=== PATIENT | male | born 1950 | race Caucasian/White ===

== ENCOUNTER 2017-08-14 05:28 | Observation (INO) | payer MEDICARE ==
[2017-08-12 10:44] VITALS: BMI 21.5
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
[2017-08-14] MEDS ORDERED: Midazolam HCl 2 mg/2 ml Vial ONE (06:12)
[2017-08-14] MEDS ORDERED: Fentanyl 250 MCG/5 ML VIAL ONE (06:12)
[2017-08-14] MEDS ORDERED: Thrombin 5000 UNITS/5 ML VIAL ONE (06:22)
[2017-08-14] MEDS ORDERED: Bupivacaine PF 0.5% 30 ML VIAL ONE (06:22)
[2017-08-14] MEDS ORDERED: Bupivacaine/Epinephrine 0.25% 30 ML VIAL ONE (06:22)
[2017-08-14] MEDS ORDERED: Sodium Chloride 0.9% 10 ML ONE (06:22)
[2017-08-14] MEDS ORDERED: CEFAZOLIN/Water 2 GM/20 ML SYRINGE ONE (06:32)
[2017-08-14] MEDS ORDERED: Glycopyrrolate 0.2 MG/ML 5 ML SYRINGE ONE (07:05)
[2017-08-14] MEDS ORDERED: PHENYLEPHRINE-NS 100 MCG/ML 10 ML SYRINGE ONE (07:05)
[2017-08-14] MEDS ORDERED: Propofol 200 MG/20 ML VIAL ONE (07:05)
[2017-08-14] MEDS ORDERED: Lidocaine 1% PF 5 ML VIAL ONE (07:05)
[2017-08-14] MEDS ORDERED: Ondansetron HCl/PF 4 MG/2 ML Vial ONE (07:05)
[2017-08-14] MEDS ORDERED: HYDROmorphone 2 MG/ML VIAL SLOW IVP PRN (09:18)
[2017-08-14] MEDS ORDERED: Meperidine HCl/PF 25 MG/ML VIAL SLOW IVP PRN (09:18)
[2017-08-14] MEDS ORDERED: Promethazine HCl 25 MG/ML VIAL SLOW IVP PRN (09:18)
[2017-08-14] MEDS ORDERED: Morphine Sulfate 2 MG/ML SYRINGE SLOW IVP PRN (09:18)
[2017-08-14] MEDS ORDERED: Fentanyl 100 MCG/2 ML VIAL ONE ×4 (09:30→10:40)
[2017-08-14] MEDS ORDERED: Ketorolac Tromethamine 30 MG/ML VIAL ONE (10:14)
--- NOTE | 2017-08-14 10:14 | OP ---
DATE OF PROCEDURE: 08/14/2017 SURGEON: Jere Elkins M.D. BUSINESS AGENT: Gilbert Hennessy PA-C. PREOPERATIVE INDICATION: Prevent neurological deterioration. 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 OPERATIVE PROCEDURE: Anterior cervical diskectomy, intervertebral arthrodesis, placement of interve rtebral biomechanical device, local morselized autograft, morselized Allograft, and anterior cervica l plating C3-C4 and C4-C5 and operating microscope. PREOPERATIVE MEDICATION: Ancef 2 grams IV. DRAIN NUMBER: Zero. DRAIN TYPE: None. PROCEDURE IN DETAIL: The patient was brought to the operating room. General endotracheal anesthesi a was induced. The patient was positioned supine on the operating table with his head supported by gel-filled donut shaped headrest. A lateral fluoro radiograph was used to plan our incision. The r ight side of the neck was sterilely prepped and draped. We opened the incision in the skin folds of the right side of the neck with a 10 blade knife and controlled bleeding with bipolar cautery. We dissected sharply to the platysma and cut this muscle in line with our incision. We carried our dis section medial to the sternocleidomastoid, and lateral to the trachea and esophagus to the preverteb ral space. We placed a marker at C3-C4 and took a lateral fluoro radiograph to confirm the levels u yaneli which we were operating. We elevated the longus colli muscles off the anterior surface of C3, C 4, and C5 and placed a self-retaining retractor beneath them. Distraction pins were placed at C3 an d C5 and distracted across both of the intervening interspaces. We incised the interspaces with a 1 5 blade knife and removed disk contents using curettes and rongeurs. The operating microscope was b rought into the field. Under microscopic magnification using microsurgical techniques, we removed the remainder of the inte rvertebral disk. We accessed the ventral epidural space with a micro curette and then using Keromid n rongeurs, we removed the posterior longitudinal ligament and posterior osteophytes across the enti re disk space from one neural foramen all the way to the other with wide foraminotomies and this was done at C3-C4 and again at C4-C5. The dura was nicely decompressed. We prepared the endplates for grafting using angled curettes. We measured the height of the each interspace. The C3-C4 interspa ce measured 7 mm and C4-C5 measured 6 mm. The appropriately sized PEEK intervertebral graft was bro ught into the field. They were loaded with demineralized bone matrix and morselized autograft. The autograft was then prepared on the back table by using our bone that we harvested during osteophyte removal. This bone was cleaned of all soft tissue attachments, morselized and added to demineraliz ed bone matrix to form our fusion substrate. The PEEK grafts were advanced into their respective in terspaces under radiographic guidance to the appropriate depth. An anterior cervical plate was brou ght into the field. The 34 mm plate was affixed using variable angle screws at C3 and C4 and fixed angle screws used at C5. We engaged the locking mechanism over each of the 6 screws. AP and latera l fluoro radiographs confirmed adequate position of our instrumentation. We irrigated copiously wit h bacitracin irrigation. We closed the wound in anatomic layers and applied a sterile dressing. Th is was a clean case and no contamination.
[2017-08-14] MEDS ORDERED: Cyclobenzaprine 10 MG TAB ONE (10:35)
[2017-08-14] MEDS ORDERED: diphenhydrAMINE 50 MG/ML VIAL ONE (10:57)
[2017-08-14] MEDS ORDERED: Morphine 4 MG/ML VIAL ONE (12:42)
[2017-08-14] MEDS ORDERED: Acetaminophen/Codeine 30-300mg Tablet PO PRN ×2 (13:30)
[2017-08-14] MEDS ORDERED: Ondansetron HCl/PF 4 MG/2 ML Vial IVP PRN (13:30)
[2017-08-14] MEDS: Cyclobenzaprine 10 MG TAB PO PRN ×2 (14:46→22:34)
[2017-08-14] MEDS ORDERED: HYDROcodone/Acetaminophen 5/325 mg Tablet PO PRN (18:05)
[2017-08-14] MEDS: HYDROcodone/Acetaminophen 5/325 mg Tablet PO PRN ×2 (18:29→22:30)
[2017-08-14] MEDS: Mometasone/Formoterol 120 PUFF INHALER INH SCH (19:39)
[2017-08-14] MEDS ORDERED: FLU VACC TS2017-18 (>65YR) 0.5 ML SYRINGE IM ONE (21:00)
[2017-08-15] MEDS: HYDROcodone/Acetaminophen 5/325 mg Tablet PO PRN ×3 (03:24→12:04)
[2017-08-15] MEDS: Cyclobenzaprine 10 MG TAB PO PRN (06:13)
[2017-08-15] MEDS: Mometasone/Formoterol 120 PUFF INHALER INH SCH (07:20)
[2017-08-15] MEDS ORDERED: Multivitamin W/ Minerals 1 TAB PO SCH (09:00)
[2017-08-15 09:11] VITALS: BP 130/74; TEMP 97.5
--- NOTE | 2017-08-15 10:50 | PRG ---
DATE OF SERVICE: 08/15/2017 Mr. Friedman is postoperative day 1 from 2 level ACDF. He is doing well with as expected some postoper ative pain, but this appears to be well controlled. He is moving all extremities without focal defi cit. He is tolerating orals with mild dysphonia. His dressing is dry and his collar is well fittin g. We will plan on dismissal today. I went over the plan for today and we will arrange for postope rative pain medication.
--- NOTE | 2017-08-17 09:47 | DIS ---
DATE OF DISCHARGE: 08/15/2017 ADMISSION DIAGNOSES: Cervical spondylitic myelopathy and intervertebral disk disease with cord compr ession at C3-4 and C4-5 DISCHARGE DIAGNOSES: Cervical spondylitic myelopathy and intervertebral disk disease with cord compr ession at C3-4 and C4-5. DISCHARGE CONDITION: The patient is stable, doing well, he was tolerating regular diet. Pain is wel l controlled with pain medication. He is able to ambulate in the nazario with no problems. CONSULTATIONS: Physical therapy. PROCEDURES: Anterior cervical diskectomy, intervertebral arthrodesis, placement of intervertebral bi omechanical device, local morselized autograft and morselized allograft, and anterior cervical platin g of C3-4 and C4-5 with operating microscope. All images were taken intraoperatively. HISTORY OF PRESENT ILLNESS: Mr. Friedman is a 67-year-old male who we saw in the office who over the st several years has had some neck pain that has gotten worse. He has also had worsening balance and he has been hyperreflexic in the upper extremities. Because of the cord compression on the cervical spine he opted for neurosurgical intervention and had an anterior cervical diskectomy and fusion bet ween C3 and C5. HOSPITAL COURSE: Hospital course was unremarkable. DISCHARGE PHYSICAL EXAMINATION: HEENT: Normocephalic, atraumatic. Hearing intact. Moist mucous membranes. Trachea midline. EYES: Pupils are equal and reactive to light. Extraocular muscles are intact. Sclerae is white, no nicteric. CARDIOVASCULAR: The patient has regular rate and rhythm, normal S1, S2 heart sounds. He had no dist al cyanosis or clubbing. RESPIRATORY: The patient has bilateral symmetric chest rise. Appears to be no shortness of breath. NEUROLOGIC: Cranial nerves II-XII were grossly intact. Speech is fluent. He answers my questions a ppropriately. He is slightly off balance with gait and station. ACTIVITY: The patient can have regular activity upon discharge with restrictions of lifting no more than 15 pounds and wearing a C-collar when ambulating and sitting upright. DIET: The patient can have a regular diet upon discharge. HOME MEDICATIONS: 1. Flexeril 5 mg p.o. t.i.d. 2. Tramadol 50 mg p.o. t.i.d. p.r.n. 3. Tylenol #3 one tablet p.o. q.4 hours p.r.n. 4. Symbicort 160-4.5 2 puffs inhaler q.a.m. 5. Omeprazole 10 mg p.o. as desired. 6. Multivitamin 1 tablet p.o. daily.
== END 2017-08-15 13:16 | disposition home or self-care (01) ==
LOC: SDC 05:28 → SURG B 11:40
PROVIDERS: ADMIT Neurological Surgery; ATTEND Neurological Surgery
PROC: 0RG20A0 Fusion of 2 or more Cervical Vertebral Joints with Interbody Fusion Device, Anterior Approach, Anterior Column, Open Approach (ICD-10-PCS; principal; 2017-08-14)
DX: M50.021 Cervical disc disorder at C4-C5 level with myelopathy (principal); M47.12 Other spondylosis with myelopathy, cervical region; F17.210 Nicotine dependence, cigarettes, uncomplicated; M48.02 Spinal stenosis, cervical region; K21.9 Gastro-esophageal reflux disease without esophagitis; Z79.899 Other long term (current) drug therapy; Z96.7 Presence of other bone and tendon implants; Z90.2 Acquired absence of lung [part of]; Z98.890 Other specified postprocedural states
CPT/HCPCS: 20930; 20936; 22551; 22552; 22845; 22853 ×2; 76001; 90732; 94640; 94664; 96374; 96375; C1713 ×2; G0008; G0009; G0378 ×2; Q2036; 90471; 90682; A4216; J1170; J1200; J1885; J2001; J2250; J2270; J2405; J2704; J3010; J3490; S0020

== ENCOUNTER 2017-10-29 09:34 | Outpatient (CLI) | payer MEDICARE ==
--- NOTE | 2017-10-29 11:34 | RAD ---
THREE VIEWS CERVICAL SPINE: INDICATION: Radiculopathy. COMPARISON: Prior exam dated 04/20/17. FINDINGS: Since the comparison study, there has been interval performed of an ACDF spanning C3 through C5. The re are intervertebral disk cages at C3-4 and C4-5. Instrumentation projects in the expected position . Lung apices are clear. There are mild vascular calcifications involving the carotid bulbs. IMPRESSION: 1. Postoperative cervical spine. 2. Moderate spondylosis cervical spine. POS: [facility]
== END 2017-10-29 09:35 | disposition home or self-care (01) ==
LOC: TBSIIMAG 09:34
PROVIDERS: ATTEND Neurological Surgery
DX: M47.22 Other spondylosis with radiculopathy, cervical region (principal); Z98.1 Arthrodesis status
CPT/HCPCS: 72040

== ENCOUNTER 2017-12-02 11:22 | Outpatient (CLI) | payer MEDICARE, OTHER ==
[2017-12-02 12:44] LABS: Anion Gap 9 mmol/L (10-20); BUN (Urea Nitrogen) 10 mg/dL (8.4-25.7); Band 2 % (5-11); Calc. Creatinine Clearance 0 mL/min (70-130); Calcium 9.1 mg/dL (7.8-10.44); Carbon Dioxide 26 mmol/L (23-31); Chloride 104 mmol/L (98-107); Estimated GFR-MDRD Greater than 90; Glucose 113 mg/dL (80-115); Lymphocytes 40 % (21-51); MDiff Complete? YES; Mean Corpuscular HGB CONC 33.1 g/dL (32.0-36.0); Monocytes 8 % (0-10); Neutrophil 49 % (42-75); Platelet Count 186 thou/uL (130-400); Potassium 4.7 mmol/L (3.5-5.1); RBC Distribution Width 11.8 % (11.5-14.5); Reactive Lymphocytes 1 % (0-10); Red Blood Cell (RBC) Count 4.13 mill/uL (4.70-6.10); Sodium 134 mmol/L (136-145); White Blood Cell (WBC) Count 4.2 thou/uL (4.8-10.8)
--- NOTE | 2017-12-02 19:08 | EKG ---
Test Reason : Blood Pressure : / mmHG Vent. Rate : 058 BPM Atrial Rate : 058 BPM P-R Int : 138 ms QRS Dur : 080 ms QT Int : 436 ms P-R-T Axes : 071 065 040 degrees QTc Int : 428 ms Sinus bradycardia Otherwise normal ECG No previous ECGs available Confirmed by DR. Gurvinder BELCHER ([id number]) on 12/02/2017 7:08:17 PM Referred By: MANOJ Confirmed By:DR. Gurvinder BELCHER
== END 2017-12-02 11:23 | disposition home or self-care (01) ==
LOC: LABBT 11:22
PROVIDERS: ATTEND Specialist
DX: Z01.810 Encounter for preprocedural cardiovascular examination (principal); Z01.812 Encounter for preprocedural laboratory examination; K42.9 Umbilical hernia without obstruction or gangrene
CPT/HCPCS: 80048; 85025; 93005; 93010

== ENCOUNTER 2017-12-03 07:26 | Day surgery (SDC) | payer MEDICARE ==
[2017-12-02 11:36] VITALS: BMI 21.8
[2017-12-03] MEDS ORDERED: PROVENTIL INHALER 6.7 G (200 INHALATIONS) ONE (07:31)
[2017-12-03] MEDS ORDERED: Lidocaine 1% PF 5 ML VIAL ONE (07:31)
[2017-12-03] MEDS ORDERED: ePHEDrine/0.9% NaCl/PF SYRINGE 50 mg/10 ml ONE (07:31)
[2017-12-03] MEDS ORDERED: Dexamethasone 20 MG/5 ML VIAL ONE (07:31)
[2017-12-03] MEDS ORDERED: Glycopyrrolate 0.2 MG/ML 5 ML SYRINGE ONE (07:31)
[2017-12-03] MEDS ORDERED: PROPOFOL 200 MG/20 ML VIAL ONE (07:31)
[2017-12-03] MEDS ORDERED: Ondansetron HCl/PF 4 MG/2 ML Vial ONE ×3 (07:31→09:40)
[2017-12-03] MEDS ORDERED: CEFAZOLIN/Water 2 GM/20 ML SYRINGE ONE (08:16)
[2017-12-03] MEDS ORDERED: Ketorolac Tromethamine 30 MG/ML VIAL ONE (08:16)
[2017-12-03] MEDS ORDERED: Bupivacaine HCl 0.5%/Epinephrine 1:200,000/PF 30 ml Vial ONE (09:28)
[2017-12-03] MEDS ORDERED: Famotidine/PF 20 mg/2ml Vial ONE (09:40)
[2017-12-03] MEDS ORDERED: Fentanyl 100 MCG/2 ML VIAL ONE ×3 (09:45→11:18)
[2017-12-03] MEDS ORDERED: Promethazine HCl 25 MG/ML VIAL ONE (11:05)
--- NOTE | 2017-12-03 11:52 | OP ---
DATE OF PROCEDURE: 12/03/2017 PREOPERATIVE DIAGNOSIS: Umbilical hernia. POSTOPERATIVE DIAGNOSIS: Umbilical hernia. OPERATION PERFORMED: Umbilical hernia repair. SURGEON: Lupillo Miguel M.D. ANESTHESIA: General endotracheal. INDICATIONS: The patient is a 67-year-old white male. He presents with a symptomatic visible umbili thea hernia at the superior aspect of his umbilicus. He is taken to the operating room at this time f or repair. DESCRIPTION OF OPERATION: Informed consent was obtained. The patient was taken to the operating whe re general endotracheal anesthesia obtained with the patient in supine position. Abdomen was prepped with ChloraPrep and draped in sterile fashion. Local anesthetic was infiltrated using 0.5% Marcaine with epinephrine. Curvilinear infraumbilical incision was created. Dissection was carried through skin and subcutaneous tissue. The umbilicus was dissected off the underlying fascia and hernia sac a nd reflected superiorly. Hernia defect was easily visualized. This was debrided to viable tissue ci rcumferentially. It was cleared on the anterior and posterior aspects. A 4.3 cm Proceed ventral pat ch was passed via the preperitoneal space and the tails were pulled snug against the abdominal wall. The tails were secured to the anterior aspect of the abdominal wall using 2 interrupted sutures of 0 Prolene superiorly and inferiorly. The lateral aspects of the defect were closed with 2 additional 0 Prolene sutures incorporating bites of the anterior leaflet of the mesh patch. The umbilicus was s ecured to the fascia with 2 interrupted sutures of 3-0 Vicryl. The wound was closed in layers with 3 -0 and 4-0 Monocryl. Additional local anesthetic was infiltrated during closure. Dermabond was plac ed externally. A compression dressing was fashioned out of cotton balls and a Tegaderm in the usual fashion. Of note, during the course of dissecting the posterior aspect I palpated, could find no add itional hernia defect anywhere in the surrounding area.
[2017-12-03] MEDS ORDERED: HYDROcodone/Acetaminophen 5/325 mg Tablet ONE (12:15)
== END 2017-12-03 13:33 | disposition home or self-care (01) ==
LOC: SDC 07:26
PROVIDERS: ATTEND Specialist
PROC: 0WUF0JZ Supplement Abdominal Wall with Synthetic Substitute, Open Approach (ICD-10-PCS; principal; 2017-12-03)
DX: K42.9 Umbilical hernia without obstruction or gangrene (principal); F17.210 Nicotine dependence, cigarettes, uncomplicated; Z88.5 Allergy status to narcotic agent
CPT/HCPCS: 49585; 96374 ×2; C1781; J0131; J0670; J1100; J1885; J2001; J2405; J2550; J2704; J3010; S0028

== ENCOUNTER 2018-06-13 12:05 | Emergency (ER) | payer MEDICARE ==
[~2018-06-13 12:05] MED LIST: ISOVUE-370 76%-LOCM 1 ML ONE
[2018-06-13 12:58] LABS: Bilirubin Negative (Negative); Blood, Urine Negative (Negative); Clarity CLEAR (Clear); Glucose, Urine (Dipstick) Negative (Negative); Leukocyte Negative (Negative); Nitrite Negative (Negative); Protein, Urine (Dipstick) Negative (Neg-Trace); Specific Gravity, Urine 1.006 (1.002-1.036); Urobilinogen 0.2 mg/dL (0.2-1.0)
[2018-06-13 13:07] LABS: #Eosinphils 0.1 thou/uL (0.0-0.7); #Lymphocytes 1.3 thou/uL (1.20-3.40); #Monocytes 0.5 thou/uL (0.11-0.59); #Neutrophils 2.3 thou/uL (1.40-6.50); %Basophils 0.8 % (0.0-1.0); %Lymphocytes 30.5 % (21.0-51.0); %Monocytes 12.8 % (0.0-10.0); %Neutrophils 53.8 % (42.0-75.0); Hemoglobin 12.4 g/dL (14.0-18.0); Mean Corpuscular HGB CONC 33.3 g/dL (32.0-36.0); Mean Corpuscular Hemoglobin 34.5 pg (27.0-31.0); Mean Platelet Volume 7.5 fL (7.4-10.4); Platelet Count 116 thou/uL (130-400); White Blood Cell (WBC) Count 4.2 thou/uL (4.8-10.8)
[2018-06-13 13:23] LABS: PLT Morphology Comment Appears Decreased; RBC Morphology Normal
[2018-06-13] MEDS ORDERED: Ketorolac Tromethamine 30 MG/ML VIAL ONE (13:32)
[2018-06-13 13:34] LABS: ALT (SGPT) 67 U/L (8-55); AST (SGOT) 70 U/L (5-34); Albumin 3.2 g/dL (3.4-4.8); Alkaline Phosphatase 70 U/L (40-150); Anion Gap 8 mmol/L (10-20); BUN (Urea Nitrogen) 8 mg/dL (8.4-25.7); Bilirubin, Total 1.1 mg/dL (0.2-1.2); Calc. Creatinine Clearance 0 mL/min (70-130); Calcium 8.3 mg/dL (7.8-10.44); Carbon Dioxide 25 mmol/L (23-31); Chloride 108 mmol/L (98-107); Estimated GFR-MDRD Greater than 90; Globulin 4.7 g/dL (2.4-3.5); Glucose 90 mg/dL (80-115); Lipase 29 U/L (8-78); Potassium 4.7 mmol/L (3.5-5.1); Protein, Total 7.9 g/dL (5.8-8.1); Sodium 136 mmol/L (136-145)
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
== END 2018-06-13 14:16 | disposition home or self-care (01) ==
LOC: ERS 12:05
DX: G89.18 Other acute postprocedural pain (principal); R10.9 Unspecified abdominal pain; F17.210 Nicotine dependence, cigarettes, uncomplicated; Z79.899 Other long term (current) drug therapy
CPT/HCPCS: 36415; 74177; 80053; 81003; 83690; 85025; 96374; J1885

== ENCOUNTER 2018-10-13 17:53 | Emergency (ER) | payer MEDICARE ==
[2018-10-13 19:44] LABS: #Basophils 0.1 thou/uL (0.0-0.2); #Eosinphils 0.1 thou/uL (0.0-0.7); #Lymphocytes 2.3 thou/uL (1.20-3.40); #Monocytes 0.8 thou/uL (0.11-0.59); #Neutrophils 2.3 thou/uL (1.40-6.50); %Basophils 1.9 % (0.0-1.0); %Eosinophils 1.9 % (0.0-10.0); %Lymphocytes 41.2 % (21.0-51.0); %Monocytes 14.5 % (0.0-10.0); %Neutrophils 40.6 % (42.0-75.0); Hemoglobin 14.8 g/dL (14.0-18.0); Mean Corpuscular HGB CONC 34.4 g/dL (32.0-36.0); Mean Corpuscular Hemoglobin 33.9 pg (27.0-31.0); Mean Corpuscular Volume 98.8 fL (78.0-98.0); Mean Platelet Volume 6.9 fL (7.4-10.4); Platelet Count 215 thou/uL (130-400); Red Blood Cell (RBC) Count 4.35 mill/uL (4.70-6.10); White Blood Cell (WBC) Count 5.6 thou/uL (4.8-10.8)
[2018-10-13 20:05] LABS: ALT (SGPT) 76 U/L (8-55); AST (SGOT) 80 U/L (5-34); Albumin 3.5 g/dL (3.4-4.8); Alkaline Phosphatase 79 U/L (40-150); Anion Gap 16 mmol/L (10-20); BUN (Urea Nitrogen) 8 mg/dL (8.4-25.7); Bilirubin, Total 0.4 mg/dL (0.2-1.2); Calc. Creatinine Clearance 0 mL/min (70-130); Calcium 8.7 mg/dL (7.8-10.44); Carbon Dioxide 20 mmol/L (23-31); Chloride 98 mmol/L (98-107); Estimated GFR-MDRD 87; Glucose 100 mg/dL (80-115); Potassium 3.6 mmol/L (3.5-5.1); Protein, Total 8.5 g/dL (5.8-8.1); Sodium 130 mmol/L (136-145)
[2018-10-13] MEDS ORDERED: Ondansetron PF 4 MG/2 ML Vial ONE (20:42)
[2018-10-13] MEDS ORDERED: Morphine 4 MG/ML VIAL ONE (20:42)
[2018-10-13] MEDS ORDERED: diphenhydrAMINE 50 MG/ML VIAL ONE (20:49)
--- NOTE | 2018-10-13 20:50 | RAD ---
PORTABLE CHEST 10/13/18 PROVIDED CLINICAL HISTORY: Abdominal pain. FINDINGS: The cardiac and mediastinal silhouette is within normal limits. The lungs appear clear. No pleural fl uid or pneumothorax apparent. Postoperative changes are seen involving the left shoulder. IMPRESSION: No evidence for an acute cardiopulmonary process. POS: [facility]
[2018-10-13] MEDS ORDERED: Lorazepam 2 MG/ML VIAL ONE (21:00)
--- NOTE | 2018-10-13 21:19 | CT ---
CT OF THE ABDOMEN AND PELVIS WITH IV CONTRAST 10/13/18 PROVIDED CLINICAL HISTORY: Abdominal pain. FINDINGS: Comparison 06/13/18. The visualized lung bases are free of significant opacity. Emphysematous changes are seen. The liver, spleen, pancreas, kidneys, and adrenal glands demonstrate a stable CT appearance. Evaluation of regional bowel is limited given lack of enteric contrast material. There is no evidence for bowel obstruction. There is no free fluid or free air apparent. There is possible mucosal enhanc ement and thickening involving the cecum. The appendix is not definitely identified. No definite fat stranding changes are seen. Vascular calcifications are noted involving the abdominal aorta and its branches. The osseous structures demonstrate no concerning lytic or blastic lesions. IMPRESSION: 1. Question mucosal hyperenhancement and thickening involving the cecum, incompletely evaluated on the basis of this study. Findings could reflect colitis. The appendix is not distinctly identified . 2. Chronic findings as above. POS: [facility]
[2018-10-13 21:47] LABS: Bilirubin Negative (Negative); Blood, Urine Negative (Negative); Clarity CLEAR (Clear); Glucose, Urine (Dipstick) Negative (Negative); Leukocyte Negative (Negative); Nitrite Negative (Negative); Protein, Urine (Dipstick) Negative (Neg-Trace); Specific Gravity, Urine 1.007 (1.002-1.036); pH, Urine 6.5 (5.0-9.0)
== END 2018-10-13 22:08 | disposition home or self-care (01) ==
LOC: ERS 17:53
DX: K52.9 Noninfective gastroenteritis and colitis, unspecified (principal); F17.210 Nicotine dependence, cigarettes, uncomplicated
CPT/HCPCS: 36415; 71045; 74177; 80053; 81003; 83690; 84484; 85025; 93005; 96361; 96374; 96375; J1200; J2060; J2270; J2405

== ENCOUNTER 2019-05-09 21:46 | Emergency (ER) | payer MEDICARE ==
[2019-05-09] MEDS ORDERED: Morphine 4 MG/ML VIAL ONE (22:02)
[2019-05-09 22:19] LABS: #Basophils 0.1 thou/uL (0.0-0.2); #Lymphocytes 3.6 thou/uL (1.20-3.40); #Monocytes 0.8 thou/uL (0.11-0.59); #Neutrophils 3.2 thou/uL (1.40-6.50); %Eosinophils 0.5 % (0.0-10.0); %Lymphocytes 46.2 % (21.0-51.0); %Monocytes 10.7 % (0.0-10.0); %Neutrophils 41.5 % (42.0-75.0); Hemoglobin 14.5 g/dL (14.0-18.0); Mean Corpuscular HGB CONC 34.2 g/dL (32.0-36.0); Mean Corpuscular Hemoglobin 33.9 pg (27.0-31.0); Mean Corpuscular Volume 99.3 fL (78.0-98.0); Platelet Count 208 thou/uL (130-400); RBC Distribution Width 12.6 % (11.5-14.5); Red Blood Cell (RBC) Count 4.27 mill/uL (4.70-6.10); White Blood Cell (WBC) Count 7.8 thou/uL (4.8-10.8)
[2019-05-09 22:39] LABS: ALT (SGPT) 67 U/L (8-55); AST (SGOT) 73 U/L (5-34); Albumin 3.7 g/dL (3.4-4.8); Alcohol 276 mg/dL (Less than 10); Alkaline Phosphatase 79 U/L (40-150); Anion Gap 13 mmol/L (10-20); BUN (Urea Nitrogen) 11 mg/dL (8.4-25.7); Bilirubin, Total 0.4 mg/dL (0.2-1.2); Calc. Creatinine Clearance 0 mL/min (70-130); Calcium 8.9 mg/dL (7.8-10.44); Carbon Dioxide 20 mmol/L (23-31); Chloride 101 mmol/L (98-107); Estimated GFR-MDRD 84; Globulin 6.1 g/dL (2.4-3.5); Glucose 83 mg/dL (80-115); Potassium 4.7 mmol/L (3.5-5.1); Protein, Total 9.8 g/dL (5.8-8.1); Sodium 129 mmol/L (136-145)
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
[2019-05-09] MEDS ORDERED: Ketorolac Tromethamine 30 MG/ML VIAL ONE (22:45)
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
--- NOTE | 2019-05-09 22:58 | RAD ---
FRONTAL RADIOGRAPH CHEST: Date: 05-09-19 Comparison: None. History: Injury, trauma, pain. FINDINGS: There is emphysematous change involving both lungs with pulmonary hyperinflation. Supine imaging limi ts assessment for pneumothorax and pleural fluid. No focal consolidation or alveolar edema. IMPRESSION: No acute findings. POS: [facility]
--- NOTE | 2019-05-09 23:10 | CT ---
CT OF CHEST, ABDOMEN, PELVIS, THORACIC SPINE AND LUMBAR SPINE: Date: 05-09-19 Comparison: None. History: Injury cutting down a tree. Technique: Axial CT imaging at 5 mm intervals from the thoracic inlet through the pubic symphysis wit h IV contrast. Coronal reformatted imaging of chest, abdomen, pelvis, thoracic spine and lumbar spine . Sagittal reformatted imaging of the thoracic and lumbar spine obtained as well. FINDINGS: Motion artifact limits detailed assessment at the base of the neck and the level of the thoracic inle t. This limits assessment of bilateral shoulders. No obvious lymphadenopathy is seen. No significant pleural, paracardial or mediastinal fluid. There i s atherosclerotic calcification of the coronary arteries in the aortic arch. There are prominent emphysematous changes noted bilaterally with an upper lobe predominance. Review of the extraspinal osseous structures of the chest demonstrate no acute findings. Motion artif act slightly limits assessment of the ribs. 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 Diffuse hepatic hypodensity suggest steatosis. Liver, spleen, gallbladder, pancreas, adrenal glands a nd kidneys demonstrate no acute findings. There is a tiny hypodensity in the midpole of the left kidn ey measuring 7 mm, too small to characterize. There is multifocal atherosclerotic calcification of th e abdominal aorta and its branches. No abdominal or pelvic lymphadenopathy. There is post-operative h ardware associated with the proximal left femur, incompletely imaged on this exam. Motion slightly li mits detailed assessment of the pelvis. There is sigmoid diverticulosis without evidence for diverticulitis. Appendix is unremarkable. Extraspinal osseous structures of the abdomen and pelvis demonstrate no widening of the sacroiliac cecilia ints or the pubic symphysis. No sacral fracture. Superior and inferior pubic ramus appears intact camilo aterally. CT OF THE THORACIC AND LUMBAR SPINE: Images demonstrate no acute fracture or evidence of dislocation. IMPRESSION: 1. Numerous incidental findings as detailed above. No acute post-traumatic abnormality noted. Results were called to Dr. Wagner at 10:30 p.m. 05-09-19 Code CR POS: [facility]
== END 2019-05-09 23:20 | disposition home or self-care (01) ==
LOC: ERS 21:46
DX: R07.81 Pleurodynia (principal); M54.2 Cervicalgia; M54.6 Pain in thoracic spine; F17.210 Nicotine dependence, cigarettes, uncomplicated
CPT/HCPCS: 70450; 71045; 71260; 72125; 72170; 74177; 80053; 80307; 85025; 96374; 96375; J1885; J2270; Q9966

== ENCOUNTER 2019-07-24 02:18 | Inpatient (IN) | payer MEDICARE ==
[2019-07-24 02:36] LABS: #Eosinphils 0.1 thou/uL (0.0-0.7); #Lymphocytes 3.2 thou/uL (1.20-3.40); #Monocytes 1.1 thou/uL (0.11-0.59); #Neutrophils 3.6 thou/uL (1.40-6.50); %Basophils 0.5 % (0.0-1.0); %Eosinophils 1.1 % (0.0-10.0); %Lymphocytes 39.9 % (21.0-51.0); %Monocytes 13.7 % (0.0-10.0); %Neutrophils 44.8 % (42.0-75.0); Hemoglobin 13.3 g/dL (14.0-18.0); Mean Corpuscular HGB CONC 35.4 g/dL (32.0-36.0); Mean Corpuscular Hemoglobin 35.1 pg (27.0-31.0); Mean Corpuscular Volume 99.2 fL (78.0-98.0); Mean Platelet Volume 6.8 fL (7.4-10.4); Platelet Count 184 thou/uL (130-400); RBC Distribution Width 11.9 % (11.5-14.5); Red Blood Cell (RBC) Count 3.78 mill/uL (4.70-6.10); White Blood Cell (WBC) Count 8.1 thou/uL (4.8-10.8)
[2019-07-24] MEDS ORDERED: Ondansetron PF 4 MG/2 ML Vial ONE (02:37)
[2019-07-24 02:38] LABS: INR-International Normal Ratio 1.2; PTT 30.3 SEC (22.9-36.1); Prothrombin Time 14.8 SEC (12.0-14.7)
[2019-07-24] MEDS ORDERED: Acetaminophen 1,000 MG in Premix Bag 1 BAG IVPB PRN (02:44)
[2019-07-24] MEDS ORDERED: HumaLOG 300 UNITS/3 ML VIAL SC PRN (02:45)
[2019-07-24] MEDS ORDERED: Sodium Chloride 0.9% 1,000 ML IV SCH (02:45)
[2019-07-24] MEDS ORDERED: Promethazine HCl 25 MG/ML VIAL IM PRN (02:45)
[2019-07-24] MEDS ORDERED: Dextrose 5% in Water 1,000 ML IV PRN (02:45)
[2019-07-24] MEDS ORDERED: Ondansetron PF 4 MG/2 ML Vial IVP PRN (02:45)
[2019-07-24] MEDS ORDERED: Dextrose 50% Abboject 50 ML SYRINGE SLOW IVP PRN (02:45)
[2019-07-24] MEDS ORDERED: hydrALAZINE 20 MG/ML VIAL SLOW IVP PRN (02:45)
[2019-07-24 02:48] LABS: ALT (SGPT) 43 U/L (8-55); AST (SGOT) 44 U/L (5-34); Acetaminophen Less than 6.0 mcg/mL (10.0-30.0); Albumin 3.3 g/dL (3.4-4.8); Alcohol 193 mg/dL (Less than 10); Alkaline Phosphatase 58 U/L (40-110); Anion Gap 14 mmol/L (10-20); BUN (Urea Nitrogen) 12 mg/dL (8.4-25.7); Bilirubin, Total 0.6 mg/dL (0.2-1.2); Calc. Creatinine Clearance 0 mL/min (70-130); Calcium 7.8 mg/dL (7.8-10.44); Carbon Dioxide 22 mmol/L (23-31); Chloride 99 mmol/L (98-107); Estimated GFR-MDRD 82; Globulin 4.3 g/dL (2.4-3.5); Glucose 95 mg/dL (80-115); Potassium 3.5 mmol/L (3.5-5.1); Protein, Total 7.6 g/dL (5.8-8.1); Salicylate Less than 8.0 mg/dL (15.0-30.0); Sodium 131 mmol/L (136-145)
[2019-07-24] MEDS ORDERED: Pantoprazole 40 MG VIAL ONE (03:06)
[2019-07-24] MEDS ORDERED: Ketorolac Tromethamine 30 MG/ML VIAL ONE (03:06)
[2019-07-24] MEDS ORDERED: Ibuprofen 200 MG TAB ONE (04:33)
[2019-07-24] MEDS ORDERED: traMADol HCl 50 MG TAB ONE (04:33)
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
[2019-07-24 05:07] LABS: Amphetamine Not Detected (NotDetected); Barbiturates Screen Not Detected (NotDetected); Benzodiazepine Screen Not Detected (NotDetected); Cocaine Metabolite Screen Not Detected (NotDetected); Medtox Control Line Valid? VALID (VALID); Medtox Reader # READER 4; Methadone Not Detected (NotDetected); Methamphetamine Not Detected (NotDetected); Opiate Screen Detected (NotDetected); Oxycodone Screen Not Detected (NotDetected); Phencyclidine (PCP) Not Detected (NotDetected); THC/Cannabinoid Screen Not Detected (NotDetected); Tricyclic Screen Not Detected (NotDetected)
[2019-07-24] MEDS: Acetaminophen 500 MG TAB PO SCH ×2 (06:26→08:47)
[2019-07-24] MEDS ORDERED: FLU VACC TS2019-20(65YR UP)/PF 180 MCG/0.5 ML SYRINGE IM ONE (06:30)
[2019-07-24 06:41] VITALS: BMI 22.5
[2019-07-24] MEDS ORDERED: Calcium Carbonate 500 MG ChewTAB PO PRN (06:41)
[2019-07-24 07:12] LABS: Lactic Acid 1.5 mmol/L (0.5-2.2)
[2019-07-24] MEDS ORDERED: clonazePAM 0.5 MG TAB PO PRN (08:44)
[2019-07-24] MEDS: traMADol HCl 50 MG TAB PO PRN ×2 (08:47→09:54)
[2019-07-24] MEDS ORDERED: Polyethylene Glycol 3350 17 GM Packet PO SCH (09:00)
[2019-07-24] MEDS ORDERED: Famotidine/PF 20 mg/2ml Vial SLOW IVP SCH (09:00)
[2019-07-24] MEDS ORDERED: Senokot S 8.6-50 MG TAB PO SCH (09:00)
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
[2019-07-24] MEDS ORDERED: traMADol HCl 50 MG TAB PO PRN (09:40)
[2019-07-24] MEDS ORDERED: Ketorolac Tromethamine 30 MG/ML VIAL IVP SCH (09:45)
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
[2019-07-24] MEDS ORDERED: Acetaminophen 500 MG TAB PO SCH (15:00)
[2019-07-24 15:15] VITALS: BP 123/75; TEMP 97.9
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
== END 2019-07-24 17:50 | disposition home or self-care (01) | DRG 914 ==
LOC: ERS 02:18 → SURG B 02:45
PROVIDERS: ADMIT Surgery; ATTEND Surgery
PROC: 0HDBXZZ Extraction of Right Upper Arm Skin, External Approach (ICD-10-PCS; principal; 2019-07-24)
DX: S46.291A Other injury of muscle, fascia and tendon of other parts of biceps, right arm, initial encounter (principal); F17.200 Nicotine dependence, unspecified, uncomplicated; J44.9 Chronic obstructive pulmonary disease, unspecified; K21.9 Gastro-esophageal reflux disease without esophagitis; S44.8X1A Injury of other nerves at shoulder and upper arm level, right arm, initial encounter; I95.9 Hypotension, unspecified; M19.90 Unspecified osteoarthritis, unspecified site; R40.2412 Glasgow coma scale score 13-15, at arrival to emergency department; W32.0XXA Accidental handgun discharge, initial encounter; Z98.1 Arthrodesis status; Z90.49 Acquired absence of other specified parts of digestive tract; Z98.42 Cataract extraction status, left eye; Z98.41 Cataract extraction status, right eye
CPT/HCPCS: 36415; 80053; 80306; 80307; 83605; 85025; 85610; 85730; 86850; 86900; 86901; 96365; 96375; C9113; G0390; J0690; J1885; J2405; S0028

== ENCOUNTER 2019-12-11 21:31 | Observation (INO) | payer MEDICARE ==
[~2019-12-11 21:31] MED LIST changes: -ISOVUE-370 76%-LOCM 1 ML ONE; +Iopamidol-370 76% 500 ML 1 ML ONE
[2019-12-11 21:59] LABS: #Basophils 0.1 thou/uL (0.0-0.2); #Eosinphils 0.1 thou/uL (0.0-0.7); #Lymphocytes 3.3 thou/uL (1.20-3.40); #Monocytes 0.8 thou/uL (0.11-0.59); #Neutrophils 3.6 thou/uL (1.40-6.50); %Eosinophils 0.8 % (0.0-10.0); %Lymphocytes 42.1 % (21.0-51.0); %Monocytes 10.3 % (0.0-10.0); %Neutrophils 45.8 % (42.0-75.0); Hemoglobin 14.5 g/dL (14.0-18.0); Mean Corpuscular HGB CONC 34.3 g/dL (32.0-36.0); Mean Corpuscular Volume 99.1 fL (78.0-98.0); Mean Platelet Volume 6.8 fL (7.4-10.4); Platelet Count 181 thou/uL (130-400); RBC Distribution Width 11.8 % (11.5-14.5); Red Blood Cell (RBC) Count 4.26 mill/uL (4.70-6.10); White Blood Cell (WBC) Count 7.8 thou/uL (4.8-10.8)
[2019-12-11] MEDS ORDERED: Morphine 4 MG/ML VIAL ONE (22:14)
[2019-12-11 22:24] LABS: ALT (SGPT) 62 U/L (8-55); AST (SGOT) 60 U/L (5-34); Albumin 3.9 g/dL (3.4-4.8); Alkaline Phosphatase 56 U/L (40-110); Anion Gap 12 mmol/L (10-20); BUN (Urea Nitrogen) 9 mg/dL (8.4-25.7); Bilirubin, Total 0.5 mg/dL (0.2-1.2); Calc. Creatinine Clearance 0 mL/min (70-130); Calcium 8.8 mg/dL (7.8-10.44); Carbon Dioxide 26 mmol/L (23-31); Chloride 97 mmol/L (98-107); Estimated GFR-MDRD Greater than 90; Globulin 4.3 g/dL (2.4-3.5); Glucose 94 mg/dL (80-115); Lipase 71 U/L (8-78); Potassium 4.1 mmol/L (3.5-5.1); Protein, Total 8.2 g/dL (5.8-8.1); Sodium 131 mmol/L (136-145)
--- NOTE | 2019-12-11 22:27 | RAD ---
Chest AP view INDICATION: Chest pain and wheezing COMPARISON: Prior exam dated May 09, 2019 FINDINGS: Lungs: The lungs are clear. Stable severe emphysema. Cardiac silhouette: The cardiomediastinal silhouette appears within normal limits. Pulmonary vasculature: Normal. Pleural spaces: No pleural effusion or pneumothorax is demonstrated. Upper abdomen: No abnormality seen. Osseous structures: No acute osseous abnormality. Additional findings: None. IMPRESSION: No acute cardiopulmonary abnormality. Stable emphysema.
--- NOTE | 2019-12-11 23:03 | CT ---
CTA OF THE CHEST AND ABDOMEN UTILIZING AN AORTIC DISSECTION PROTOCOL AND 3-D REFORMATTED IMAGING INDICATION: Chest pain COMPARISON: None FINDINGS: Aorta: No acute aortic stenosis, occlusion or aneurysmal formation demonstrated. There are moderate v ascular calcifications seen involving the visualized vasculature. Central pulmonary artery: No central pulmonary embolus demonstrated. Additional thorax findings: Stable severe emphysema. Coronary artery calcifications. Stable scarring of the right upper lobe. Additional abdominal findings: No acute abnormality. Fatty liver. Left renal cyst. Osseous structures: No acute osseous abnormality. There is scattered degenerative and osteoarthritic change present. IMPRESSION: 1. No appreciable aortic stenosis, occlusion or aneurysmal formation demonstrated. 2. Stable severe emphysema. 3. Fatty liver 4. Left renal cyst
[2019-12-12] MEDS ORDERED: Ketorolac Tromethamine 30 MG/ML VIAL ONE (00:53)
[2019-12-12 01:31] LABS: Troponin I Less than 0.010 ng/mL (< 0.028)
[2019-12-12 02:25] VITALS: BMI 21.5
[2019-12-12] MEDS ORDERED: Acetaminophen 325 MG TAB PO PRN ×2 (02:41→02:52)
[2019-12-12] MEDS ORDERED: clonazePAM 0.5 MG TAB PO SCH (03:00)
[2019-12-12 04:24] LABS: Troponin I Less than 0.010 ng/mL (< 0.028)
--- NOTE | 2019-12-12 11:37 | NM ---
Radionucleotide stress and rest myocardial perfusion scan with CT attenuation correction and SPECT im aging HISTORY: Chest pain. FINDINGS: Lexiscan protocol. There is homogeneous uptake of radiotracer throughout the left ventricular myocardium on the stress a nd rest images. No focal perfusion defect or reversibility. QGS analysis of gated SPECT images shows no focal wall motion abnormalities. Ejection fraction calcul ated at 70%. IMPRESSION: Normal exam.
[2019-12-12 11:59] VITALS: BP 130/89; TEMP 97.8
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
[2019-12-12] MEDS ORDERED: Regadenoson 0.4 MG/5 ML SYRINGE ONE (13:13)
--- NOTE | 2019-12-13 04:47 | DIS ---
DATE OF ADMISSION: 12/12/2019 DATE OF DISCHARGE: 12/12/2019 HISTORY OF PRESENT ILLNESS AND HOSPITAL COURSE: The patient is a 69-year-old male with past medical history of heavy smoking, who presented to the hospital with complaints of central chest pain worsening over 2 hours prior to presentation. The patient's chest pain improved with nitroglycerin in the ER. EKG did not show any ST-T abnormalities, serial troponins were unremarkable. Subsequently, a nuclear pharmacological stress test was performed showing no evidence of reversible ischemia. Examination prior to discharge showed normal S1, S2, RRR, no MRG. DISCHARGE DIAGNOSES: 1. Chest pain. 2. Tobacco abuse. DISCHARGE MEDICATIONS: 1. Pantoprazole 40 mg orally daily. 2. Prednisone 40 mg orally daily for 5 days for suspected acute bronchitis. 3. DuoNeb q.4 hours p.r.n. for shortness of breath or wheezing. 4. Clonazepam 0.5 mg orally twice daily. 5. Acetaminophen 325 mg orally q.4 hours as needed for headache. 6. Tramadol 50 mg orally daily. 7.Advair 100/50 inhaled b.i.d. DISCHARGE INSTRUCTIONS: The patient was instructed to follow up with PCP in 1 week and to exercise as tolerated. Job ID: [id number] MTDD
== END 2019-12-12 14:36 | disposition home or self-care (01) ==
LOC: ERS 21:31 → 2SW 12-12 00:52
PROVIDERS: ADMIT Internal Medicine; ATTEND Internal Medicine
DX: R07.9 Chest pain, unspecified (principal); Z79.899 Other long term (current) drug therapy; Z87.891 Personal history of nicotine dependence; Z98.890 Other specified postprocedural states
CPT/HCPCS: 71045; 71275; 72191; 74175; 78452; 80053; 83690; 84484 ×3; 85025; 85379; 93005; 93017; 94640; 96374; 96375; 99285; A9500; G0378 ×2; 36415; J1885; J2270; J2785; J7620; Q9967

== ENCOUNTER 2021-10-14 14:35 | Outpatient (CLI) | payer MEDICARE, OTHER ==
[2021-10-14 15:35] LABS: #Eosinphils 0.1 10x3/uL (0.0-0.5); #Monocytes 0.8 10x3/uL (0.0-1.1); #Neutrophils 1.9 10x3/uL (1.5-8.4); %Basophils 0.7 % (0.0-2.0); %Eosinophils 1.4 % (0.0-6.0); %Lymphocytes 36.5 % (18.0-47.0); %Monocytes 17.4 % (0.0-10.0); %Neutrophils 43.8 % (40.0-75.0); Hemoglobin 13.2 g/dL (13.5-17.5); Mean Corpuscular HGB CONC 33.4 g/dL (32.0-36.0); Mean Corpuscular Hemoglobin 34.4 pg (27.0-33.0); Mean Corpuscular Volume 102.9 fl (81.2-95.1); Mean Platelet Volume 9.8 fl (7.4-10.4); Platelet Count 200 10x3/uL (150-450); Red Blood Cell (RBC) Count 3.84 10x6/uL (4.32-5.72); White Blood Cell (WBC) Count 4.4 10x3/uL (3.5-10.5)
[2021-10-14 16:08] LABS: Anion Gap 10 mmol/L (10-20); BUN (Urea Nitrogen) 10 mg/dL (8.4-25.7); Calc. Creatinine Clearance 0 mL/min (70-130); Calcium 8.4 mg/dL (7.8-10.44); Carbon Dioxide 25 mmol/L (23-31); Chloride 105 mmol/L (98-107); Glucose 73 mg/dL (80-115); Potassium 3.9 mmol/L (3.5-5.1); Sodium 136 mmol/L (136-145)
[2021-10-14 16:21] LABS: Band 1 % (5-11); Eosinophils 2 % (0-10); Lymphocytes 36 % (21-51); Monocytes 17 % (0-10); Platelet Morphology Comment Appears Adequate
[2021-10-15 07:28] LABS: SARS-CoV-2 PCR by NAA Not Detected (NotDetected)
== END 2021-10-14 14:36 | disposition home or self-care (01) ==
LOC: LABBT 14:35
PROVIDERS: ATTEND Specialist
DX: Z01.818 Encounter for other preprocedural examination (principal); K40.90 Unilateral inguinal hernia, without obstruction or gangrene, not specified as recurrent; Z20.822 Contact with and (suspected) exposure to COVID-19
CPT/HCPCS: 71046; 80048; 85025; 93005; U0003; U0005; 93010

== ENCOUNTER 2021-10-17 08:02 | Day surgery (SDC) | payer MEDICARE, OTHER ==
[2021-10-11 12:33] VITALS: BMI 21.1
[2021-10-17] MEDS ORDERED: Ketorolac Tromethamine 30 MG/ML VIAL ONE ×2 (08:39→10:40)
[2021-10-17] MEDS ORDERED: Acetaminophen 500 MG TAB ONE (08:39)
[2021-10-17] MEDS ORDERED: SUGAMMADEX SODIUM 200 MG/2 ML VIAL ONE (10:18)
[2021-10-17] MEDS ORDERED: Fentanyl 100 MCG/2 ML VIAL ONE ×3 (10:18→12:49)
[2021-10-17] MEDS ORDERED: Xylocaine 1% w/ Epi 1:100K 10 ML VIAL ONE (10:21)
[2021-10-17] MEDS ORDERED: ceFAZolin 2 GM/Dextrose 50 ML IVPB ONE (10:31)
[2021-10-17] MEDS ORDERED: Rocuronium Bromide 10 MG/ML (10ML VIAL) ONE (10:40)
[2021-10-17] MEDS ORDERED: ePHEDrine 50 MG/ML VIAL ONE (10:40)
[2021-10-17] MEDS ORDERED: PROPOFOL 200 MG/20 ML VIAL ONE (10:40)
[2021-10-17] MEDS ORDERED: Ondansetron PF 4 MG/2 ML Vial ONE (10:40)
[2021-10-17] MEDS ORDERED: Glycopyrrolate 0.2 MG/ML 5 ML SYRINGE ONE (10:40)
[2021-10-17] MEDS ORDERED: Lidocaine 1% PF 5 ML VIAL ONE (10:40)
[2021-10-17] MEDS ORDERED: Bupivacaine 0.25% 10 ML VIAL ONE ×2 (10:51→10:52)
[2021-10-17] MEDS ORDERED: HYDROmorphone 2 MG/ML VIAL ONE (13:14)
[2021-10-17] MEDS ORDERED: HYDROcodone/Acetaminophen 5/325 mg Tablet ONE (16:47)
== END 2021-10-17 19:45 | disposition home or self-care (01) ==
LOC: SDC 08:02
PROVIDERS: ATTEND Specialist
PROC: 0YU74JZ Supplement Right Femoral Region with Synthetic Substitute, Percutaneous Endoscopic Approach (ICD-10-PCS; principal; 2021-10-17)
DX: K41.90 Unilateral femoral hernia, without obstruction or gangrene, not specified as recurrent (principal); F17.210 Nicotine dependence, cigarettes, uncomplicated; Z79.899 Other long term (current) drug therapy; Z88.5 Allergy status to narcotic agent; Z90.2 Acquired absence of lung [part of]
CPT/HCPCS: J0690; J1170; J1885; J2405; J2704; J3010; J3490; J7620; S0020

== ENCOUNTER 2023-01-06 09:29 | Outpatient (CLI) | payer MEDICARE ==
[2023-01-06 10:12] LABS: Mean Corpuscular HGB CONC 34.6 g/dL (32.0-36.0); Mean Corpuscular Hemoglobin 32.9 pg (27.0-33.0); Mean Corpuscular Volume 95.1 fl (81.2-95.1); Mean Platelet Volume 8.8 fl (7.4-10.4); Platelet Count 240 10x3/uL (150-450); RBC Distribution Width 13.7 % (11.5-14.5); Red Blood Cell (RBC) Count 3.65 10x6/uL (4.32-5.72); White Blood Cell (WBC) Count 9.6 10x3/uL (3.5-10.5)
[2023-01-06 10:13] LABS: MDiff Complete? YES
[2023-01-06 10:31] LABS: Anion Gap 13 mmol/L (10-20); BUN (Urea Nitrogen) 8 mg/dL (8.4-25.7); Calc. Creatinine Clearance 0 mL/min (70-130); Calcium 8.5 mg/dL (7.8-10.44); Carbon Dioxide 22 mmol/L (23-31); Chloride 104 mmol/L (98-107); Estimated GFR 93; Glucose 85 mg/dL (80-115); Potassium 4.5 mmol/L (3.5-5.1); Sodium 134 mmol/L (136-145)
[2023-01-06 10:52] LABS: Band 1 % (5-11); Eosinophils 7 % (0-10); Lymphocytes 14 % (21-51); Monocytes 17 % (0-10); Neutrophil 61 % (42-75)
[2023-01-06 10:54] LABS: Platelet Morphology Comment Appears Adequate; RBC Morphology Normal
== END 2023-01-06 09:30 | disposition home or self-care (01) ==
LOC: LABBT 09:29
PROVIDERS: ATTEND Specialist
DX: Z01.818 Encounter for other preprocedural examination (principal); K42.9 Umbilical hernia without obstruction or gangrene; R91.8 Other nonspecific abnormal finding of lung field; J92.9 Pleural plaque without asbestos; D47.2 Monoclonal gammopathy
CPT/HCPCS: 71046; 80048; 85025; 93005; 93010

== ENCOUNTER 2023-01-11 20:41 | Inpatient (IN) | payer MEDICARE ==
[~2023-01-11 20:41] MED LIST changes: -Iopamidol-370 76% 500 ML 1 ML ONE; +Iopamidol-370 76% 500 ML MDV (1 ML CHARGE) ONE
[2023-01-11 21:14] LABS: #Basophils 0.1 thou/uL (0.0-0.2); #Eosinphils 0.9 thou/uL (0.0-0.7); #Lymphocytes 1.6 thou/uL (1.20-3.40); #Monocytes 1.4 thou/uL (0.11-0.59); #Neutrophils 9.4 thou/uL (1.40-6.50); %Basophils 0.4 % (0.0-1.0); %Eosinophils 6.6 % (0.0-10.0); %Lymphocytes 12.3 % (21.0-51.0); %Monocytes 10.4 % (0.0-10.0); %Neutrophils 70.3 % (42.0-75.0); Mean Corpuscular HGB CONC 33.7 g/dL (32.0-36.0); Mean Platelet Volume 6.6 fL (7.4-10.4); Platelet Count 252 10x3/uL (130-400); RBC Distribution Width 12.5 % (11.5-14.5); Red Blood Cell (RBC) Count 3.71 mill/uL (4.70-6.10); White Blood Cell (WBC) Count 13.3 10x3/uL (4.8-10.8)
[2023-01-11 21:17] LABS: Actual Bicarbonate (HCO3v) 17 mEq/L (22-28); Base Excess -7.4 mEq/L (-2.0 to +3.0); Calcium, Ionized (venous) 1.08 mmol/L (1.16-1.32); Chloride (VBG) 106 mmol/L (98-106); Hemoglobin (Hb) 13.1 g/dL (12.6-17.4); Potassium (VBG) 4.35 mmol/L (3.70-5.30); Sodium 131.6 mmol/L (133-146); pH (venous) 7.37 (7.32-7.43)
[2023-01-11 21:36] LABS: Acetaminophen Less than 10.0 mcg/mL (10.0-30.0); Alcohol 27 mg/dL (Less than 10); Salicylate Less than 8.0 mg/dL (15.0-30.0)
[2023-01-11 21:37] LABS: ALT (SGPT) 72 U/L (8-55); AST (SGOT) 67 U/L (5-34); Alkaline Phosphatase 74 U/L (40-110); Anion Gap 14 mmol/L (10-20); BUN (Urea Nitrogen) 14 mg/dL (8.4-25.7); Bilirubin, Total 0.4 mg/dL (0.2-1.2); Calc. Creatinine Clearance 0 mL/min (70-130); Calcium 9.2 mg/dL (7.8-10.44); Carbon Dioxide 13 mmol/L (23-31); Chloride 106 mmol/L (98-107); Estimated GFR 77; Globulin 5.9 g/dL (2.4-3.5); Glucose 96 mg/dL (80-115); Lipase 15 U/L (8-78); Potassium 4.3 mmol/L (3.5-5.1); Protein, Total 8.9 g/dL (5.8-8.1); Sodium 129 mmol/L (136-145)
[2023-01-11 21:42] LABS: INR-International Normal Ratio 1.2; Prothrombin Time 15.2 sec (12.0-14.7)
[2023-01-11 21:43] LABS: PTT 35.3 sec (22.9-36.1)
[2023-01-11] MEDS ORDERED: Ipratropium Bromide 2.5 ml Neb NEB PRN (22:56)
[2023-01-11] MEDS ORDERED: Acetaminophen 325 MG TAB PO PRN (22:56)
[2023-01-11] MEDS ORDERED: Albuterol 200 PUFF (6.7GM INHALER) INH PRN (22:56)
[2023-01-11] MEDS ORDERED: Famotidine 20 MG TAB PO PRN (22:56)
[2023-01-11] MEDS ORDERED: Ondansetron PF 4 MG/2 ML Vial IVP PRN (22:56)
[2023-01-11] MEDS ORDERED: Ondansetron ODT 4 MG TAB PO PRN (22:56)
[2023-01-11] MEDS ORDERED: Lorazepam 1 MG TAB PO PRN (23:07)
[2023-01-11] MEDS ORDERED: Lorazepam 2 MG/ML VIAL IM PRN (23:07)
[2023-01-11] MEDS ORDERED: Vancomycin 1 GM/200 ML (FROZEN) BAG ONE (23:15)
[2023-01-11] MEDS ORDERED: Electrolyte Replacement Protocol FS SCH (23:15)
[2023-01-11] MEDS ORDERED: Acetaminophen 500 MG TAB ONE (23:20)
[2023-01-11] MEDS ORDERED: traMADol HCl 50 MG TAB PO PRN (23:42)
[2023-01-12] MEDS: Ketorolac Tromethamine 30 MG/ML VIAL IVP SCH (00:34)
[2023-01-12 00:57] VITALS: BMI 21.2
[2023-01-12 01:37] LABS: Legionella Urinary Ag Negative (Negative); Strep pneumo Urine Ag NEGATIVE (NEGATIVE)
[2023-01-12 01:41] LABS: Lactic Acid 0.8 mmol/L (0.5-2.2)
[2023-01-12 01:43] LABS: SARS-CoV-2 NAA Rapid Test Not Detected (NotDetected)
[2023-01-12 05:36] LABS: #Basophils 0.1 thou/uL (0.0-0.2); #Eosinphils 1.1 thou/uL (0.0-0.7); #Lymphocytes 1.6 thou/uL (1.20-3.40); #Monocytes 1.7 thou/uL (0.11-0.59); #Neutrophils 7.3 thou/uL (1.40-6.50); %Basophils 0.4 % (0.0-1.0); %Eosinophils 9.4 % (0.0-10.0); %Lymphocytes 13.4 % (21.0-51.0); %Monocytes 14.2 % (0.0-10.0); %Neutrophils 62.6 % (42.0-75.0); Hemoglobin 10.8 g/dL (14.0-18.0); Mean Corpuscular HGB CONC 33.8 g/dL (32.0-36.0); Mean Corpuscular Hemoglobin 34.3 pg (27.0-31.0); Mean Platelet Volume 6.7 fL (7.4-10.4); Platelet Count 230 10x3/uL (130-400); RBC Distribution Width 12.4 % (11.5-14.5); Red Blood Cell (RBC) Count 3.16 mill/uL (4.70-6.10); White Blood Cell (WBC) Count 11.7 10x3/uL (4.8-10.8)
[2023-01-12 06:02] LABS: ALT (SGPT) 62 U/L (8-55); AST (SGOT) 55 U/L (5-34); Albumin 2.5 g/dL (3.4-4.8); Alkaline Phosphatase 60 U/L (40-110); Anion Gap 10 mmol/L (10-20); BUN (Urea Nitrogen) 16 mg/dL (8.4-25.7); Bilirubin, Total 0.5 mg/dL (0.2-1.2); Calc. Creatinine Clearance 58 mL/min (70-130); Calcium 8.4 mg/dL (7.8-10.44); Carbon Dioxide 20 mmol/L (23-31); Chloride 104 mmol/L (98-107); Estimated GFR 71; Globulin 4.9 g/dL (2.4-3.5); Glucose 83 mg/dL (80-115); Magnesium 1.7 mg/dL (1.6-2.6); Potassium 4.5 mmol/L (3.5-5.1); Protein, Total 7.4 g/dL (5.8-8.1); Sodium 129 mmol/L (136-145)
[2023-01-12] MEDS ORDERED: traMADol HCl 50 MG TAB PO PRN ×2 (07:08→08:45)
[2023-01-12] MEDS ORDERED: Magnesium 2 GM/50 ML(in water) 2 GM in Premix Bag 1 BAG IVPB SCH (08:00)
[2023-01-12] MEDS ORDERED: Ibuprofen 600 MG TAB PO PRN (08:04)
[2023-01-12] MEDS ORDERED: methylPREDNISolone Sod Succ/PF 125 MG/2 ML VIAL IVP SCH (08:06)
[2023-01-12] MEDS ORDERED: predniSONE 20 MG TAB PO SCH (08:15)
[2023-01-12] MEDS ORDERED: Multivit, Therapeutic 1 TAB PO SCH (09:00)
[2023-01-12] MEDS ORDERED: Folic Acid 1 MG TAB PO SCH (09:00)
[2023-01-12] MEDS ORDERED: Non-Formulary Item 1 EACH (Trazodone Hcl [Trazodone Hcl] 100 MG Tablet) PO SCH (09:00)
[2023-01-12] MEDS ORDERED: Vancomycin HCl 750 MG in Sodium Chloride 0.9% 250 ML 250 ML IVPB SCH (10:00)
[2023-01-12] MEDS: traZODone HCl 50 MG TAB PO SCH ×2 (10:23→20:41)
[2023-01-12] MEDS: Morphine 2 MG/ML VIAL SLOW IVP PRN ×3 (10:24→22:43)
[2023-01-12] MEDS: methylPREDNISolone Sod Succ 40 MG VIAL IVP SCH ×2 (10:24→20:41)
[2023-01-12] MEDS: Benzonatate 100 MG CAP PO SCH ×3 (10:24→20:41)
[2023-01-12] MEDS: Lidocaine 4% Patch TD SCH (10:25)
[2023-01-12] MEDS: metroNIDAZOLE 500 MG in Premix Bag 1 BAG IVPB SCH ×3 (10:27→23:58)
[2023-01-12] MEDS: Albuterol 200 PUFF (6.7GM INHALER) INH SCH ×4 (11:18→22:46)
[2023-01-12] MEDS: Cefepime 2 GM in Sodium Chloride 0.9% 100 ML IVPB SCH ×2 (13:19→22:43)
[2023-01-12] MEDS ORDERED: Polyethylene Glycol 3350 17 GM Packet PO SCH (16:45)
[2023-01-12] MEDS ORDERED: Bisacodyl 5 MG TAB PO PRN (16:46)
[2023-01-12] MEDS ORDERED: Bisacodyl 10 MG SUPP PR PRN (16:46)
[2023-01-12] MEDS: Mometasone/Formoterol 200/5 60 PUFF INH SCH (18:21)
[2023-01-12] MEDS: Tamsulosin HCl 0.4 MG CAP PO SCH (20:40)
[2023-01-12] MEDS: Senokot S 8.6-50 MG TAB PO SCH (20:41)
[2023-01-12] MEDS: Transdermal Patch Removal TOP SCH (20:43)
[2023-01-12] MEDS ORDERED: Tamsulosin HCl 0.4 MG CAP PO SCH (21:00)
[2023-01-12] MEDS: clonazePAM 0.5 MG TAB PO PRN (22:42)
[2023-01-12] MEDS ORDERED: Lorazepam 1 MG TAB PO PRN (23:07)
[2023-01-13] MEDS: Ketorolac Tromethamine 30 MG/ML VIAL IVP SCH (00:03)
[2023-01-13] MEDS ORDERED: Vancomycin HCl 750 MG in Sodium Chloride 0.9% 250 ML 250 ML IVPB SCH (01:00)
[2023-01-13] MEDS: Albuterol 200 PUFF (6.7GM INHALER) INH SCH ×6 (02:22→23:35)
[2023-01-13] MEDS: Morphine 2 MG/ML VIAL SLOW IVP PRN ×4 (05:08→22:20)
[2023-01-13] MEDS: GUAIFENESIN SF SOLN 200 MG/10 ML UDCUP PO PRN ×2 (05:09→22:20)
[2023-01-13 05:10] LABS: #Monocytes 0.6 thou/uL (0.11-0.59); #Neutrophils 10.2 thou/uL (1.40-6.50); %Eosinophils 0.3 % (0.0-10.0); %Lymphocytes 8.2 % (21.0-51.0); %Neutrophils 86.6 % (42.0-75.0); Hemoglobin 10.4 g/dL (14.0-18.0); Mean Corpuscular HGB CONC 33.5 g/dL (32.0-36.0); Mean Corpuscular Hemoglobin 33.8 pg (27.0-31.0); Mean Platelet Volume 6.9 fL (7.4-10.4); Platelet Count 228 10x3/uL (130-400); RBC Distribution Width 12.1 % (11.5-14.5); Red Blood Cell (RBC) Count 3.07 mill/uL (4.70-6.10); White Blood Cell (WBC) Count 11.8 10x3/uL (4.8-10.8)
[2023-01-13 05:28] LABS: Anion Gap 11 mmol/L (10-20); BUN (Urea Nitrogen) 19 mg/dL (8.4-25.7); Calc. Creatinine Clearance 74 mL/min (70-130); Calcium 8.6 mg/dL (7.8-10.44); Carbon Dioxide 18 mmol/L (23-31); Chloride 106 mmol/L (98-107); Estimated GFR 93; Glucose 181 mg/dL (80-115); Potassium 4.3 mmol/L (3.5-5.1); Sodium 131 mmol/L (136-145)
[2023-01-13] MEDS: Mometasone/Formoterol 200/5 60 PUFF INH SCH ×2 (07:06→18:46)
[2023-01-13] MEDS ORDERED: predniSONE 20 MG TAB PO SCH (08:00)
[2023-01-13] MEDS: Lidocaine 4% Patch TD SCH (08:27)
[2023-01-13] MEDS: methylPREDNISolone Sod Succ 40 MG VIAL IVP SCH (08:28)
[2023-01-13] MEDS: traZODone HCl 50 MG TAB PO SCH ×2 (08:51→19:55)
[2023-01-13] MEDS: Senokot S 8.6-50 MG TAB PO SCH ×2 (08:52→19:55)
[2023-01-13] MEDS: Benzonatate 100 MG CAP PO SCH ×3 (08:52→19:54)
[2023-01-13] MEDS: Polyethylene Glycol 3350 17 GM Packet PO SCH (08:52)
[2023-01-13] MEDS: Cefepime 2 GM in Sodium Chloride 0.9% 100 ML IVPB SCH (11:00)
[2023-01-13] MEDS: metroNIDAZOLE 500 MG in Premix Bag 1 BAG IVPB SCH (11:00)
[2023-01-13 12:40] LABS: Vancomycin, Trough 6.5 ug/mL
[2023-01-13] MEDS ORDERED: Vancomycin 1 GM in Premix Bag 1 BAG IVPB SCH (13:00)
[2023-01-13] MEDS: Tamsulosin HCl 0.4 MG CAP PO SCH (19:55)
[2023-01-13] MEDS: Transdermal Patch Removal TOP SCH (19:57)
[2023-01-13] MEDS: cefTRIAXone\\ROCEPHIN 1 GM in Sodium Chloride 0.9% 100 ML IVPB SCH (22:21)
[2023-01-13] MEDS ORDERED: Lorazepam 1 MG TAB PO PRN (23:07)
[2023-01-14] MEDS: Albuterol 200 PUFF (6.7GM INHALER) INH SCH ×6 (02:21→23:30)
[2023-01-14] MEDS: Morphine 2 MG/ML VIAL SLOW IVP PRN ×5 (03:46→23:42)
[2023-01-14] MEDS: GUAIFENESIN SF SOLN 200 MG/10 ML UDCUP PO PRN ×3 (03:46→14:17)
[2023-01-14 06:10] LABS: #Eosinphils 0.1 thou/uL (0.0-0.7); #Lymphocytes 1.9 thou/uL (1.20-3.40); #Neutrophils 9.3 thou/uL (1.40-6.50); %Basophils 0.2 % (0.0-1.0); %Eosinophils 0.8 % (0.0-10.0); %Lymphocytes 15.6 % (21.0-51.0); %Monocytes 8.1 % (0.0-10.0); %Neutrophils 75.3 % (42.0-75.0); Hemoglobin 10.8 g/dL (14.0-18.0); Mean Corpuscular HGB CONC 32.7 g/dL (32.0-36.0); Mean Corpuscular Hemoglobin 33.8 pg (27.0-31.0); Mean Platelet Volume 8.8 fL (7.4-10.4); Platelet Count 161 10x3/uL (130-400); RBC Distribution Width 12.6 % (11.5-14.5); Red Blood Cell (RBC) Count 3.21 mill/uL (4.70-6.10); White Blood Cell (WBC) Count 12.4 10x3/uL (4.8-10.8)
[2023-01-14 06:34] LABS: Anion Gap 14 mmol/L (10-20); BUN (Urea Nitrogen) 19 mg/dL (8.4-25.7); Calc. Creatinine Clearance 71 mL/min (70-130); Calcium 8.9 mg/dL (7.8-10.44); Carbon Dioxide 15 mmol/L (23-31); Chloride 106 mmol/L (98-107); Estimated GFR 88; Glucose 112 mg/dL (80-115); Magnesium 1.9 mg/dL (1.6-2.6); Potassium 4.7 mmol/L (3.5-5.1); Sodium 130 mmol/L (136-145)
[2023-01-14] MEDS ORDERED: Magnesium 2 GM/50 ML(in water) 2 GM in Premix Bag 1 BAG IVPB SCH (08:00)
[2023-01-14] MEDS: Mometasone/Formoterol 200/5 60 PUFF INH SCH ×2 (09:00→17:44)
[2023-01-14] MEDS: Lidocaine 4% Patch TD SCH (09:05)
[2023-01-14] MEDS: Senokot S 8.6-50 MG TAB PO SCH ×2 (09:10→20:58)
[2023-01-14] MEDS: Polyethylene Glycol 3350 17 GM Packet PO SCH (09:10)
[2023-01-14] MEDS: predniSONE 20 MG TAB PO SCH (09:10)
[2023-01-14] MEDS: Benzonatate 100 MG CAP PO SCH ×3 (09:11→20:58)
[2023-01-14] MEDS: traZODone HCl 50 MG TAB PO SCH ×2 (09:11→20:57)
[2023-01-14] MEDS ORDERED: Famotidine 20 MG TAB PO SCH ×2 (11:15→11:30)
[2023-01-14] MEDS: Tamsulosin HCl 0.4 MG CAP PO SCH (20:57)
[2023-01-14] MEDS: Transdermal Patch Removal TOP SCH (20:59)
[2023-01-14] MEDS ORDERED: Lorazepam 0.5 MG TAB PO PRN (23:07)
[2023-01-14] MEDS: cefTRIAXone\\ROCEPHIN 1 GM in Sodium Chloride 0.9% 100 ML IVPB SCH (23:08)
[2023-01-14] MEDS ORDERED: Thiamine 100 MG TAB PO SCH (23:15)
[2023-01-15] MEDS: Albuterol 200 PUFF (6.7GM INHALER) INH SCH ×6 (01:57→23:01)
[2023-01-15] MEDS: Morphine 2 MG/ML VIAL SLOW IVP PRN ×5 (04:15→22:21)
[2023-01-15 04:37] LABS: Actual Bicarbonate (HCO3v) 21 mEq/L (22-28); Base Excess -2.5 mEq/L (-2.0 to +3.0); Chloride (VBG) 103 mmol/L (98-106); Hemoglobin (Hb) 12.2 g/dL (12.6-17.4); Potassium (VBG) 4.42 mmol/L (3.70-5.30); Sodium 133.3 mmol/L (133-146); pH (venous) 7.42 (7.32-7.43)
[2023-01-15 05:08] LABS: #Lymphocytes 1.3 thou/uL (1.20-3.40); #Monocytes 0.8 thou/uL (0.11-0.59); #Neutrophils 6.6 thou/uL (1.40-6.50); %Basophils 0.2 % (0.0-1.0); %Eosinophils 0.4 % (0.0-10.0); %Lymphocytes 15.1 % (21.0-51.0); %Monocytes 9.3 % (0.0-10.0); %Neutrophils 75.1 % (42.0-75.0); Hemoglobin 11.5 g/dL (14.0-18.0); Mean Corpuscular HGB CONC 32.3 g/dL (32.0-36.0); Mean Corpuscular Hemoglobin 33.1 pg (27.0-31.0); Mean Platelet Volume 6.8 fL (7.4-10.4); Platelet Count 253 10x3/uL (130-400); RBC Distribution Width 12.2 % (11.5-14.5); Red Blood Cell (RBC) Count 3.48 mill/uL (4.70-6.10); White Blood Cell (WBC) Count 8.8 10x3/uL (4.8-10.8)
[2023-01-15 05:36] LABS: Anion Gap 12 mmol/L (10-20); BUN (Urea Nitrogen) 18 mg/dL (8.4-25.7); Calc. Creatinine Clearance 70 mL/min (70-130); Calcium 8.9 mg/dL (7.8-10.44); Carbon Dioxide 20 mmol/L (23-31); Chloride 103 mmol/L (98-107); Estimated GFR 87; Glucose 104 mg/dL (80-115); Magnesium 2.1 mg/dL (1.6-2.6); Potassium 4.3 mmol/L (3.5-5.1); Sodium 131 mmol/L (136-145)
[2023-01-15] MEDS: Mometasone/Formoterol 200/5 60 PUFF INH SCH ×2 (07:15→18:39)
[2023-01-15] MEDS ORDERED: Famotidine 20 MG TAB PO SCH (09:00)
[2023-01-15] MEDS: Lidocaine 4% Patch TD SCH (09:04)
[2023-01-15] MEDS: Polyethylene Glycol 3350 17 GM Packet PO SCH (09:04)
[2023-01-15] MEDS: Benzonatate 100 MG CAP PO SCH ×3 (09:05→20:16)
[2023-01-15] MEDS: traZODone HCl 50 MG TAB PO SCH ×2 (09:05→20:18)
[2023-01-15] MEDS: predniSONE 20 MG TAB PO SCH (09:05)
[2023-01-15] MEDS: Senokot S 8.6-50 MG TAB PO SCH ×2 (09:06→20:15)
[2023-01-15] MEDS: Doxycycline 100 MG CAP PO SCH ×3 (09:06→20:18)
[2023-01-15] MEDS: clonazePAM 0.5 MG TAB PO PRN (20:17)
[2023-01-15] MEDS: Tamsulosin HCl 0.4 MG CAP PO SCH (20:17)
[2023-01-15] MEDS: cefTRIAXone\\ROCEPHIN 1 GM in Sodium Chloride 0.9% 100 ML IVPB SCH (20:17)
[2023-01-15] MEDS: Transdermal Patch Removal TOP SCH (20:18)
[2023-01-16] MEDS: Morphine 2 MG/ML VIAL SLOW IVP PRN ×2 (02:33→06:48)
[2023-01-16] MEDS: GUAIFENESIN SF SOLN 200 MG/10 ML UDCUP PO PRN ×2 (02:38→06:51)
[2023-01-16] MEDS: Albuterol 200 PUFF (6.7GM INHALER) INH SCH ×2 (03:07→07:33)
[2023-01-16 05:07] LABS: Actual Bicarbonate (HCO3v) 20 mEq/L (22-28); Base Excess -2.5 mEq/L (-2.0 to +3.0); Calcium, Ionized (venous) 1.08 mmol/L (1.16-1.32); Chloride (VBG) 105 mmol/L (98-106); Hemoglobin (Hb) 11.5 g/dL (12.6-17.4); Potassium (VBG) 3.86 mmol/L (3.70-5.30); pH (venous) 7.49 (7.32-7.43)
[2023-01-16 05:14] LABS: #Eosinphils 0.1 thou/uL (0.0-0.7); #Lymphocytes 1.7 thou/uL (1.20-3.40); #Monocytes 1.1 thou/uL (0.11-0.59); #Neutrophils 5.4 thou/uL (1.40-6.50); %Basophils 0.3 % (0.0-1.0); %Eosinophils 0.9 % (0.0-10.0); %Lymphocytes 20.4 % (21.0-51.0); %Monocytes 13.2 % (0.0-10.0); %Neutrophils 65.3 % (42.0-75.0); Hemoglobin 10.7 g/dL (14.0-18.0); Mean Corpuscular HGB CONC 33.3 g/dL (32.0-36.0); Mean Corpuscular Hemoglobin 33.8 pg (27.0-31.0); Mean Platelet Volume 6.9 fL (7.4-10.4); Platelet Count 210 10x3/uL (130-400); RBC Distribution Width 12.4 % (11.5-14.5); Red Blood Cell (RBC) Count 3.17 mill/uL (4.70-6.10); White Blood Cell (WBC) Count 8.2 10x3/uL (4.8-10.8)
[2023-01-16 05:38] LABS: Anion Gap 12 mmol/L (10-20); BUN (Urea Nitrogen) 18 mg/dL (8.4-25.7); Calc. Creatinine Clearance 76 mL/min (70-130); Calcium 8.5 mg/dL (7.8-10.44); Carbon Dioxide 18 mmol/L (23-31); Chloride 107 mmol/L (98-107); Estimated GFR 93; Glucose 97 mg/dL (80-115); Magnesium 1.9 mg/dL (1.6-2.6); Sodium 133 mmol/L (136-145)
[2023-01-16] MEDS: Mometasone/Formoterol 200/5 60 PUFF INH SCH (07:33)
[2023-01-16] MEDS ORDERED: Magnesium 2 GM/50 ML(in water) 2 GM in Premix Bag 1 BAG IVPB SCH (08:00)
[2023-01-16] MEDS: traZODone HCl 50 MG TAB PO SCH (08:24)
[2023-01-16] MEDS: predniSONE 20 MG TAB PO SCH (08:24)
[2023-01-16] MEDS: Benzonatate 100 MG CAP PO SCH (08:25)
[2023-01-16] MEDS: Polyethylene Glycol 3350 17 GM Packet PO SCH (08:26)
[2023-01-16] MEDS: Lidocaine 4% Patch TD SCH (08:26)
[2023-01-16] MEDS: Senokot S 8.6-50 MG TAB PO SCH (08:26)
[2023-01-16 08:43] VITALS: BP 131/72; TEMP 98
[2023-01-16] MEDS ORDERED: Magnesium Oxide 400 MG TAB PO SCH (09:00)
== END 2023-01-16 10:50 | disposition home or self-care (01) | DRG 871 ==
LOC: ERS 20:41 → 2SW 22:47
PROVIDERS: ADMIT Student in an Organized Health Care Education/Training Program; ATTEND Internal Medicine
DX: A41.9 Sepsis, unspecified organism (principal); J18.9 Pneumonia, unspecified organism; J96.01 Acute respiratory failure with hypoxia; E87.1 Hypo-osmolality and hyponatremia; K21.9 Gastro-esophageal reflux disease without esophagitis; F17.210 Nicotine dependence, cigarettes, uncomplicated; K80.20 Calculus of gallbladder without cholecystitis without obstruction; J43.9 Emphysema, unspecified; E83.42 Hypomagnesemia; Z20.822 Contact with and (suspected) exposure to COVID-19; N40.0 Benign prostatic hyperplasia without lower urinary tract symptoms; Z98.890 Other specified postprocedural states; Z79.51 Long term (current) use of inhaled steroids; Z79.899 Other long term (current) drug therapy; Z71.6 Tobacco abuse counseling
CPT/HCPCS: 36415; 71045; 71275; 74230; 76705; 80048; 80053; 80202; 80307; 82805; 83605; 83690; 83735; 83880; 84443; 84484; 85025; 85610; 85730; 86850; 86900; 86901; 87040; 87070; 87081; 87205; 87449; 87899; 93005; 94664; 96374; J0692; J0696; J1650; J1885; J2272; J2920; J3370; J3370-JW; J3475; J3490; J7050; J7512; Q9967; U0002

== ENCOUNTER 2023-05-04 09:42 | Outpatient (CLI) | payer MEDICARE | END 2023-05-04 09:43 | disposition home or self-care (01) | LOC: RAD 09:42 | PROVIDERS: ATTEND Internal Medicine | DX: R06.00 Dyspnea, unspecified (principal) | CPT/HCPCS: 71046 ==

== ENCOUNTER 2023-08-15 21:11 | Inpatient (IN) | payer MEDICARE ==
[2023-08-16] MEDS ORDERED: Ipratropium/Albuterol 3 ML NEB NEB PRN ×2 (01:13→02:30)
[2023-08-16] MEDS ORDERED: Ondansetron PF 4 MG/2 ML Vial IVP PRN ×2 (01:15→02:33)
[2023-08-16] MEDS ORDERED: Ondansetron ODT 4 MG TAB SL PRN (01:15)
[2023-08-16 01:28] VITALS: BMI 28.7
[2023-08-16] MEDS: Sodium Chloride 0.9% 1,000 ML IV SCH ×2 (01:35→17:47)
[2023-08-16] MEDS: Morphine 4 MG/ML VIAL SLOW IVP PRN ×2 (01:36→05:50)
[2023-08-16] MEDS ORDERED: Lorazepam 0.5 MG TAB PO PRN (02:29)
[2023-08-16] MEDS ORDERED: Acetaminophen 650 MG Suppository PR PRN (02:33)
[2023-08-16] MEDS: Ipratropium/Albuterol 3 ML NEB NEB SCH ×6 (02:37→21:50)
[2023-08-16] MEDS ORDERED: methylPREDNISolone Sod Succ 40 MG VIAL IVP SCH ×2 (02:45→09:00)
[2023-08-16 02:56] LABS: Lactic Acid 1.9 mmol/L (0.5-2.2)
[2023-08-16 03:47] LABS: SARS-CoV-2 NAA Rapid Test Not Detected (NotDetected)
[2023-08-16 06:51] LABS: #Monocytes 0.2 thou/uL (0.11-0.59); #Neutrophils 15.9 thou/uL (1.40-6.50); %Basophils 0.1 % (0.0-1.0); %Lymphocytes 5.2 % (21.0-51.0); %Monocytes 1.2 % (0.0-10.0); %Neutrophils 92.9 % (42.0-75.0); Hematocrit 36.6 % (42.0-52.0); Hemoglobin 12.2 g/dL (14.0-18.0); Mean Corpuscular HGB CONC 33.3 g/dL (32.0-36.0); Mean Corpuscular Volume 101.9 fl (78.0-98.0); Mean Platelet Volume 10.3 fL (7.4-10.4); Platelet Count 190 10x3/uL (130-400); RBC Distribution Width 13.2 % (11.5-14.5); Red Blood Cell (RBC) Count 3.59 mill/uL (4.70-6.10); White Blood Cell (WBC) Count 17.1 10x3/uL (4.8-10.8)
[2023-08-16 07:28] LABS: Anion Gap 16 mmol/L (10-20); BUN (Urea Nitrogen) 19 mg/dL (8.4-25.7); Calc. Creatinine Clearance 63 mL/min (70-130); Calcium 8.7 mg/dL (7.8-10.44); Carbon Dioxide 16 mmol/L (23-31); Chloride 106 mmol/L (98-107); Estimated GFR 55; Glucose 172 mg/dL (83-110); Potassium 4.5 mmol/L (3.5-5.1); Sodium 133 mmol/L (136-145)
[2023-08-16] MEDS ORDERED: Pantoprazole 40 MG VIAL IVP SCH (09:00)
[2023-08-16] MEDS: Acetaminophen 325 MG TAB PO PRN ×2 (10:13→20:37)
[2023-08-16] MEDS: Benzonatate 100 MG CAP PO PRN (10:15)
[2023-08-16] MEDS ORDERED: Morphine 2 MG/ML VIAL SLOW IVP SCH (10:45)
[2023-08-16] MEDS: guaiFENesin ER 600 MG TAB PO SCH ×2 (11:00→20:29)
[2023-08-16] MEDS: HYDROcodone/Acetaminophen 5/325 mg Tablet PO PRN (14:36)
[2023-08-16] MEDS: Benzonatate 100 MG CAP PO SCH ×2 (14:38→20:28)
[2023-08-16] MEDS: Morphine 2 MG/ML VIAL SLOW IVP PRN ×2 (17:01→21:20)
[2023-08-16] MEDS: cefTRIAXone\\ROCEPHIN 1 GM in Sodium Chloride 0.9% 100 ML IVPB SCH (20:27)
[2023-08-16] MEDS: Tamsulosin HCl 0.4 MG CAP PO SCH (20:28)
[2023-08-16] MEDS: Lorazepam 0.5 MG TAB PO PRN (20:29)
[2023-08-16] MEDS: methylPREDNISolone Sod Succ 40 MG VIAL IVP SCH (20:29)
[2023-08-16] MEDS: Mirtazapine 15 MG Soltab PO SCH (20:29)
[2023-08-16] MEDS ORDERED: Tamsulosin HCl 0.4 MG CAP PO SCH (21:00)
[2023-08-16] MEDS ORDERED: CeleCOXIB 100 MG CAP PO SCH (21:00)
[2023-08-16] MEDS ORDERED: Non-Formulary Item 1 EACH (Celecoxib [Celebrex] 200 MG Capsule) PO SCH (21:00)
[2023-08-16] MEDS: Azithromycin 500 MG in Sodium Chloride 0.9% 250 ML 250 ML IVPB SCH (21:16)
[2023-08-17] MEDS: Ipratropium/Albuterol 3 ML NEB NEB SCH ×6 (01:51→22:36)
[2023-08-17] MEDS: Acetaminophen 325 MG TAB PO PRN (02:18)
[2023-08-17] MEDS: Morphine 2 MG/ML VIAL SLOW IVP PRN ×5 (02:18→22:53)
[2023-08-17] MEDS: Benzonatate 100 MG CAP PO PRN (02:18)
[2023-08-17] MEDS: traZODone HCl 50 MG TAB PO SCH (08:42)
[2023-08-17] MEDS: guaiFENesin ER 600 MG TAB PO SCH ×2 (08:43→20:23)
[2023-08-17] MEDS: methylPREDNISolone Sod Succ 40 MG VIAL IVP SCH ×2 (08:43→20:23)
[2023-08-17] MEDS: Benzonatate 100 MG CAP PO SCH ×3 (08:54→20:23)
[2023-08-17] MEDS ORDERED: Non-Formulary Item 1 EACH (Trazodone Hcl [Trazodone Hcl] 100 MG Tablet) PO SCH (09:00)
[2023-08-17] MEDS ORDERED: Fioricet 325/50/40 mg Tablet PO PRN (10:32)
[2023-08-17] MEDS ORDERED: Fioricet 325/50/40 mg Tablet PO SCH (10:45)
[2023-08-17] MEDS ORDERED: guaiFENesin/Codeine 200 mg/20 mg 10 ml Cup PO PRN (18:14)
[2023-08-17] MEDS ORDERED: guaiFENesin/Codeine 200 mg/20 mg 10 ml Cup PO SCH (18:15)
[2023-08-17] MEDS: Mirtazapine 15 MG Soltab PO SCH (20:23)
[2023-08-17] MEDS: Tamsulosin HCl 0.4 MG CAP PO SCH (20:23)
[2023-08-17] MEDS: cefTRIAXone\\ROCEPHIN 1 GM in Sodium Chloride 0.9% 100 ML IVPB SCH (20:24)
[2023-08-17] MEDS: Azithromycin 500 MG in Sodium Chloride 0.9% 250 ML 250 ML IVPB SCH (21:29)
[2023-08-17] MEDS: Lorazepam 0.5 MG TAB PO PRN (21:34)
[2023-08-18] MEDS: Ipratropium/Albuterol 3 ML NEB NEB SCH ×3 (02:48→10:08)
[2023-08-18 05:02] LABS: #Monocytes 0.5 thou/uL (0.11-0.59); %Basophils 0.1 % (0.0-1.0); %Monocytes 6.2 % (0.0-10.0); %Neutrophils 80.4 % (42.0-75.0); Hematocrit 33.6 % (42.0-52.0); Hemoglobin 11.2 g/dL (14.0-18.0); Mean Corpuscular HGB CONC 33.3 g/dL (32.0-36.0); Mean Corpuscular Hemoglobin 33.9 pg (27.0-31.0); Mean Corpuscular Volume 101.8 fl (78.0-98.0); Mean Platelet Volume 9.9 fL (7.4-10.4); Platelet Count 171 10x3/uL (130-400); RBC Distribution Width 13.2 % (11.5-14.5); White Blood Cell (WBC) Count 8.7 10x3/uL (4.8-10.8)
[2023-08-18 05:36] LABS: ALT (SGPT) 66 U/L (8-55); AST (SGOT) 37 U/L (5-34); Albumin 3.5 g/dL (3.4-4.8); Alkaline Phosphatase 85 U/L (40-110); Anion Gap 12 mmol/L (10-20); BUN (Urea Nitrogen) 19 mg/dL (8.4-25.7); Bilirubin, Total 0.3 mg/dL (0.2-1.2); Calc. Creatinine Clearance 75 mL/min (70-130); Calcium 8.4 mg/dL (7.8-10.44); Carbon Dioxide 19 mmol/L (23-31); Chloride 109 mmol/L (98-107); Estimated GFR 67; Globulin 4.2 g/dL (2.4-3.5); Glucose 120 mg/dL (83-110); Potassium 3.8 mmol/L (3.5-5.1); Protein, Total 7.7 g/dL (5.8-8.1); Sodium 136 mmol/L (136-145)
[2023-08-18] MEDS: Morphine 2 MG/ML VIAL SLOW IVP PRN ×2 (06:52→10:59)
[2023-08-18] MEDS: Lorazepam 0.5 MG TAB PO PRN (06:56)
[2023-08-18] MEDS: methylPREDNISolone Sod Succ 40 MG VIAL IVP SCH (08:17)
[2023-08-18] MEDS: guaiFENesin ER 600 MG TAB PO SCH (08:18)
[2023-08-18] MEDS: traZODone HCl 50 MG TAB PO SCH (08:18)
[2023-08-18] MEDS: Benzonatate 100 MG CAP PO SCH (08:18)
[2023-08-18 08:32] VITALS: BP 135/78; TEMP 98.1
[2023-08-18] MEDS: HYDROcodone/Acetaminophen 5/325 mg Tablet PO PRN (12:10)
== END 2023-08-18 12:15 | disposition home or self-care (01) | DRG 190 ==
LOC: UNDOADMIN 21:11 → T4-B 21:11
PROVIDERS: ADMIT Student in an Organized Health Care Education/Training Program; ATTEND Family Medicine
DX: J44.1 Chronic obstructive pulmonary disease with (acute) exacerbation (principal); J15.9 Unspecified bacterial pneumonia; N17.9 Acute kidney failure, unspecified; J44.0 Chronic obstructive pulmonary disease with (acute) lower respiratory infection; K21.9 Gastro-esophageal reflux disease without esophagitis; D64.9 Anemia, unspecified; Z11.52 Encounter for screening for COVID-19; Z79.899 Other long term (current) drug therapy; Z98.890 Other specified postprocedural states
CPT/HCPCS: 36415; 71046; 80048; 80053; 83605; 85025; 94640; C9113; J0456; J0696; J1650; J2270; J2272; J2920; J3490; J7050; J7620

== ENCOUNTER 2023-09-24 01:15 | Inpatient (IN) | payer MEDICARE ==
[2023-09-24] MEDS ORDERED: Ipratropium/Albuterol 3 ML NEB ONE (01:41)
[2023-09-24] MEDS ORDERED: Magnesium 2 GM/50 ML BAG (IN WATER) ONE (01:41)
[2023-09-24] MEDS ORDERED: fentaNYL 50 mcg/mL 1 mL Vial ONE (01:41)
[2023-09-24] MEDS ORDERED: Sodium Chloride 0.9% 100 ML ONE (02:37)
[2023-09-24] MEDS ORDERED: cefTRIAXone (ROCEPHIN) 2 GM VIAL ONE (02:37)
[2023-09-24 02:38] LABS: Actual Bicarbonate (HCO3a) 15.6 mEq/L (22-28); Analyzer IN Cardio ER; CO2 Tension 29.9 mmHg (35.0-45.0); Carboxyhemoglobin (COHb) 0.3 gm% (0.0-3.0); Hematocrit-ABG 39 % (42.0-52.0); Hemoglobin (Hb) 13.2 g/dL (14.0-18.0); Potassium - ABG Lab 5.03 mmol/L (3.70-5.30); pH, Arterial 7.334 (7.35-7.45)
[2023-09-24 02:38] LABS: #Monocytes 0.1 thou/uL (0.11-0.59); #Neutrophils 8.6 thou/uL (1.40-6.50); %Basophils 0.1 % (0.0-1.0); %Lymphocytes 9.5 % (21.0-51.0); %Monocytes 1.1 % (0.0-10.0); %Neutrophils 88.4 % (42.0-75.0); Hematocrit 38.7 % (42.0-52.0); Hemoglobin 12.8 g/dL (14.0-18.0); Mean Corpuscular HGB CONC 33.1 g/dL (32.0-36.0); Mean Corpuscular Hemoglobin 33.7 pg (27.0-31.0); Mean Corpuscular Volume 101.8 fl (78.0-98.0); Mean Platelet Volume 9.9 fL (7.4-10.4); Platelet Count 204 10x3/uL (130-400); RBC Distribution Width 13.9 % (11.5-14.5); White Blood Cell (WBC) Count 9.7 10x3/uL (4.8-10.8)
[2023-09-24] MEDS ORDERED: Ondansetron PF 4 MG/2 ML Vial IVP PRN (02:39)
[2023-09-24] MEDS ORDERED: Acetaminophen 325 MG TAB PO PRN (02:39)
[2023-09-24 02:51] LABS: Puncture Site RR
[2023-09-24 02:52] LABS: ALV-art Gradient 64.475 mmHg (0-20)
[2023-09-24 03:01] LABS: ALT (SGPT) 139 U/L (8-55); AST (SGOT) 85 U/L (5-34); Albumin 3.3 g/dL (3.4-4.8); Alkaline Phosphatase 88 U/L (40-110); Anion Gap 15 mmol/L (10-20); BUN (Urea Nitrogen) 23 mg/dL (8.4-25.7); Bilirubin, Total 0.6 mg/dL (0.2-1.2); Calc. Creatinine Clearance 0 mL/min (70-130); Calcium 8.9 mg/dL (7.8-10.44); Carbon Dioxide 13 mmol/L (23-31); Chloride 107 mmol/L (98-107); Estimated GFR 48; Globulin 5.5 g/dL (2.4-3.5); Glucose 130 mg/dL (83-110); Potassium 5.3 mmol/L (3.5-5.1); Protein, Total 8.8 g/dL (5.8-8.1); Sodium 130 mmol/L (136-145)
[2023-09-24 03:04] LABS: Troponin I Less than 0.010 ng/mL (< 0.028)
[2023-09-24] MEDS ORDERED: Ipratropium/Albuterol 3 ML NEB EZPAP PRN (03:10)
[2023-09-24] MEDS ORDERED: Sodium Chloride 0.9% 1,000 ML IV SCH ×2 (03:15→03:19)
[2023-09-24] MEDS ORDERED: Sodium Bicarb 50 MEQ/50 ML VIAL IVP SCH (03:30)
[2023-09-24 03:41] VITALS: BMI 28.4
[2023-09-24] MEDS: methylPREDNISolone Sod Succ 40 MG VIAL IVP SCH ×4 (04:31→21:10)
[2023-09-24] MEDS ORDERED: Sodium Bicarb 50 MEQ/50 ML Abboject 8.4% SYRINGE IVP SCH (04:45)
[2023-09-24] MEDS ORDERED: Acetaminophen/Codeine 30-300mg Tablet PO SCH (05:00)
[2023-09-24] MEDS: Benzonatate 100 MG CAP PO PRN ×3 (05:13→21:10)
[2023-09-24 06:41] LABS: Lactic Acid 1.9 mmol/L (0.5-2.2)
[2023-09-24] MEDS: Mometasone 200 MCG/Formoterol 5 MCG 120 PUFF INHALER INH SCH ×2 (06:54→18:37)
[2023-09-24] MEDS: Ipratropium/Albuterol 3 ML NEB NEB SCH ×5 (06:56→22:38)
[2023-09-24] MEDS: guaiFENesin/DM ER PO SCH ×2 (09:09→21:10)
[2023-09-24] MEDS: Pantoprazole 40 MG VIAL IVP SCH (09:11)
[2023-09-24] MEDS: Heparin 5,000 UNITS/ML VIAL SC SCH ×2 (09:12→21:11)
[2023-09-24 11:01] LABS: Anion Gap 10 mmol/L (10-20); BUN (Urea Nitrogen) 25 mg/dL (8.4-25.7); Calc. Creatinine Clearance 69 mL/min (70-130); Carbon Dioxide 17 mmol/L (23-31); Chloride 108 mmol/L (98-107); Estimated GFR 62; Glucose 173 mg/dL (83-110); Sodium 130 mmol/L (136-145)
[2023-09-24] MEDS: Morphine 2 MG/ML VIAL SLOW IVP PRN ×3 (12:01→21:10)
[2023-09-24] MEDS: Benzocaine/Menthol 1 LOZ LOZ PO PRN ×2 (18:51→21:09)
[2023-09-24] MEDS ORDERED: Azithromycin 500 MG in Sodium Chloride 0.9% 250 ML 250 ML IVPB SCH (22:00)
[2023-09-25] MEDS: Morphine 2 MG/ML VIAL SLOW IVP PRN ×3 (01:40→10:39)
[2023-09-25] MEDS: methylPREDNISolone Sod Succ 40 MG VIAL IVP SCH ×2 (01:42→10:27)
[2023-09-25] MEDS: Ipratropium/Albuterol 3 ML NEB NEB SCH ×3 (02:14→11:25)
[2023-09-25] MEDS ORDERED: cefTRIAXone\\ROCEPHIN 1 GM in Sodium Chloride 0.9% 100 ML IVPB SCH (03:00)
[2023-09-25 04:39] LABS: #Monocytes 0.2 thou/uL (0.11-0.59); %Basophils 0.1 % (0.0-1.0); %Lymphocytes 6.9 % (21.0-51.0); %Monocytes 2.6 % (0.0-10.0); %Neutrophils 90.1 % (42.0-75.0); Hematocrit 34.8 % (42.0-52.0); Hemoglobin 11.7 g/dL (14.0-18.0); Mean Corpuscular HGB CONC 33.6 g/dL (32.0-36.0); Mean Corpuscular Hemoglobin 33.2 pg (27.0-31.0); Mean Corpuscular Volume 98.9 fl (78.0-98.0); Mean Platelet Volume 10.5 fL (7.4-10.4); Platelet Count 169 10x3/uL (130-400); RBC Distribution Width 14.1 % (11.5-14.5); Red Blood Cell (RBC) Count 3.52 mill/uL (4.70-6.10); White Blood Cell (WBC) Count 8.9 10x3/uL (4.8-10.8)
[2023-09-25 05:07] LABS: Anion Gap 12 mmol/L (10-20); BUN (Urea Nitrogen) 27 mg/dL (8.4-25.7); Calc. Creatinine Clearance 75 mL/min (70-130); Calcium 8.3 mg/dL (7.8-10.44); Carbon Dioxide 16 mmol/L (23-31); Chloride 108 mmol/L (98-107); Estimated GFR 68; Glucose 137 mg/dL (83-110); Potassium 4.6 mmol/L (3.5-5.1); Sodium 131 mmol/L (136-145)
[2023-09-25] MEDS: Mometasone 200 MCG/Formoterol 5 MCG 120 PUFF INHALER INH SCH (07:34)
[2023-09-25 10:27] VITALS: BP 143/67; TEMP 97.9
[2023-09-25] MEDS: Pantoprazole 40 MG VIAL IVP SCH (10:27)
[2023-09-25] MEDS: guaiFENesin/DM ER PO SCH (10:27)
[2023-09-25] MEDS: Heparin 5,000 UNITS/ML VIAL SC SCH (10:28)
[2023-09-25] MEDS: Benzonatate 100 MG CAP PO PRN (10:39)
[2023-09-27] MEDS ORDERED: FLU VACC QS2023(65UP)/MF59C/PF 60 MCG/0.5 ML SYRINGE IM ONE (09:00)
== END 2023-09-25 13:29 | disposition home or self-care (01) | DRG 191 ==
LOC: ERS 01:15 → ERHOLD 02:34 → 2NO 03:27
PROVIDERS: ADMIT Internal Medicine; ATTEND Internal Medicine
PROC: 4A033R1 Measurement of Arterial Saturation, Peripheral, Percutaneous Approach (ICD-10-PCS; 2023-09-24)
PROC: 0DJ08ZZ Inspection of Upper Intestinal Tract, Via Natural or Artificial Opening Endoscopic (ICD-10-PCS; principal; 2023-09-25)
DX: J44.1 Chronic obstructive pulmonary disease with (acute) exacerbation (principal); B18.1 Chronic viral hepatitis B without delta-agent; N17.9 Acute kidney failure, unspecified; K22.10 Ulcer of esophagus without bleeding; K22.89 Other specified disease of esophagus; K31.89 Other diseases of stomach and duodenum; K43.9 Ventral hernia without obstruction or gangrene; K21.9 Gastro-esophageal reflux disease without esophagitis; N40.0 Benign prostatic hyperplasia without lower urinary tract symptoms; Z98.890 Other specified postprocedural states; Z79.899 Other long term (current) drug therapy; Z87.891 Personal history of nicotine dependence
CPT/HCPCS: 36415; 74018; 80048; 80053; 82805; 83605; 84484; 85025; 87040; 93005; 94640; 94660; 96365; 96367; 96375; C9113; J0696; J1644; J2272; J2405; J2920; J3010; J3475; J3490; J7050; J7620

== ENCOUNTER 2023-10-20 05:47 | Day surgery (SDC) | payer MEDICARE ==
[2023-10-19 09:58] VITALS: BMI 28.7
[2023-10-20] MEDS ORDERED: CEFAZOLIN 2 GM VIAL ONE (06:14)
[2023-10-20] MEDS ORDERED: Ketorolac Tromethamine 30 MG (1 mL) VIAL ONE (06:14)
[2023-10-20] MEDS ORDERED: Acetaminophen 500 MG TAB ONE (06:14)
[2023-10-20] MEDS ORDERED: Sodium Chloride 0.9% 100 ML ONE (06:14)
[2023-10-20] MEDS ORDERED: PROPOFOL 20 ML ONE (06:49)
[2023-10-20] MEDS ORDERED: fentaNYL 50 mcg/mL 1 mL Vial ONE ×2 (06:50→08:46)
[2023-10-20] MEDS ORDERED: Lidocaine 1% PF 5 ML VIAL ONE (06:51)
[2023-10-20] MEDS ORDERED: Rocuronium Bromide 10 MG/ML (10ML VIAL) ONE (06:51)
[2023-10-20] MEDS ORDERED: EPINEPHrine 1 MG/ML VIAL ONE (06:59)
[2023-10-20] MEDS ORDERED: Bupivacaine 0.25% HCL 30 ML VIAL ONE (07:00)
[2023-10-20 07:17] LABS: Anion Gap 10 mmol/L (10-20); BUN (Urea Nitrogen) 21 mg/dL (8.4-25.7); Calc. Creatinine Clearance 63 mL/min (70-130); Calcium 8.5 mg/dL (7.8-10.44); Carbon Dioxide 22 mmol/L (23-31); Chloride 107 mmol/L (98-107); Estimated GFR 54; Glucose 110 mg/dL (83-110); Potassium 4.4 mmol/L (3.5-5.1); Sodium 135 mmol/L (136-145)
[2023-10-20] MEDS ORDERED: PHENYLEPHRINE-NS 100 MCG/ML 10 ML SYRINGE ONE (07:45)
[2023-10-20] MEDS ORDERED: SUGAMMADEX SODIUM 200 MG/2 ML VIAL ONE (08:00)
[2023-10-20] MEDS ORDERED: Ondansetron PF 4 MG/2 ML Vial ONE (08:01)
[2023-10-20] MEDS ORDERED: fentaNYL PF 100 MCG/2 ML SYRINGE ONE (08:22)
[2023-10-20] MEDS ORDERED: HYDROcodone/Acetaminophen 5/325 mg Tablet ONE (09:22)
== END 2023-10-20 10:30 | disposition home or self-care (01) ==
LOC: SDC 05:47
PROVIDERS: ATTEND Specialist
PROC: 0WQF0ZZ Repair Abdominal Wall, Open Approach (ICD-10-PCS; principal; 2023-10-20)
DX: K43.2 Incisional hernia without obstruction or gangrene (principal); F17.200 Nicotine dependence, unspecified, uncomplicated; Z79.899 Other long term (current) drug therapy; Z98.890 Other specified postprocedural states; Z88.5 Allergy status to narcotic agent
CPT/HCPCS: 49593; 80048; J0171; J3010; C1889; J1885; J2405; J2704; J3490; S0020

== ENCOUNTER 2023-12-10 04:14 | Inpatient (IN) | payer MEDICARE ==
[2023-12-10] MEDS ORDERED: Morphine 4 MG/ML VIAL ONE ×3 (05:41→16:07)
[2023-12-10] MEDS ORDERED: Acetaminophen 325 MG TAB PO PRN (07:00)
[2023-12-10] MEDS ORDERED: Ondansetron ODT 4 MG TAB SL PRN (07:00)
[2023-12-10] MEDS ORDERED: Ondansetron PF 4 MG/2 ML Vial IVP PRN ×2 (07:00→07:26)
[2023-12-10 07:08] LABS: #Monocytes 0.4 thou/uL (0.11-0.59); #Neutrophils 18.5 thou/uL (1.40-6.50); %Basophils 0.2 % (0.0-1.0); %Lymphocytes 3.1 % (21.0-51.0); %Monocytes 1.9 % (0.0-10.0); %Neutrophils 93.2 % (42.0-75.0); Hemoglobin 11.1 g/dL (14.0-18.0); Mean Corpuscular HGB CONC 33.6 g/dL (32.0-36.0); Mean Corpuscular Hemoglobin 33.5 pg (27.0-31.0); Mean Corpuscular Volume 99.7 fl (78.0-98.0); Mean Platelet Volume 10.9 fL (7.4-10.4); Platelet Count 163 10x3/uL (130-400); RBC Distribution Width 15.2 % (11.5-14.5); Red Blood Cell (RBC) Count 3.31 mill/uL (4.70-6.10); White Blood Cell (WBC) Count 19.9 10x3/uL (4.8-10.8)
[2023-12-10] MEDS ORDERED: Acetaminophen 650 MG Suppository PR PRN (07:26)
[2023-12-10] MEDS ORDERED: Albuterol 2.5 MG (3 mL) NEB NEB PRN (07:29)
[2023-12-10] MEDS ORDERED: VANCOMYCIN IVPB PRN (07:50)
[2023-12-10 07:59] LABS: ALT (SGPT) 33 U/L (8-55); AST (SGOT) 45 U/L (5-34); Albumin 2.7 g/dL (3.4-4.8); Alkaline Phosphatase 89 U/L (40-110); Anion Gap 17 mmol/L (10-20); BUN (Urea Nitrogen) 22 mg/dL (8.4-25.7); Bilirubin, Total 0.5 mg/dL (0.2-1.2); Calc. Creatinine Clearance 0 mL/min (70-130); Calcium 7.9 mg/dL (7.8-10.44); Carbon Dioxide 12 mmol/L (23-31); Chloride 107 mmol/L (98-107); Estimated GFR 53; Globulin 6.2 g/dL (2.4-3.5); Glucose 130 mg/dL (83-110); Magnesium 1.9 mg/dL (1.6-2.6); Potassium 4.7 mmol/L (3.5-5.1); Protein, Total 8.9 g/dL (5.8-8.1); Sodium 131 mmol/L (136-145)
[2023-12-10] MEDS ORDERED: methylPREDNISolone Sod Succ 40 MG VIAL ONE ×2 (08:36→13:53)
[2023-12-10] MEDS: methylPREDNISolone Sod Succ 40 MG VIAL IVP SCH (08:44)
[2023-12-10] MEDS ORDERED: Vancomycin 1 GM in Sodium Chloride 0.9% 250 ML 300 ML IVPB SCH (09:00)
[2023-12-10] MEDS ORDERED: Cefepime 1 GM VIAL ONE (09:12)
[2023-12-10] MEDS ORDERED: Sodium Chloride 0.9% 100 ML ONE (09:12)
[2023-12-10] MEDS ORDERED: Enoxaparin 40 MG (0.4 mL) SYRINGE ONE (09:12)
[2023-12-10] MEDS ORDERED: Famotidine 20 MG TAB ONE (09:13)
[2023-12-10] MEDS: Enoxaparin 40 MG (0.4 mL) SYRINGE SC SCH (09:28)
[2023-12-10] MEDS: Cefepime 1 GM in Sodium Chloride 0.9% 100 ML IVPB SCH (09:28)
[2023-12-10] MEDS: Famotidine 20 MG TAB PO SCH (09:28)
[2023-12-10 10:14] VITALS: BMI 28.4
[2023-12-10] MEDS ORDERED: Acetaminophen 325 MG TAB ONE (10:15)
[2023-12-10] MEDS: Acetaminophen 325 MG TAB PO PRN (11:00)
[2023-12-10] MEDS ORDERED: ISOVUE-370 76% MDV (1 ML CHARGE) ONE (11:52)
[2023-12-10] MEDS: Ipratropium/Albuterol 3 ML NEB NEB SCH (12:22)
[2023-12-10] MEDS: Morphine 4 MG/ML VIAL SLOW IVP PRN ×2 (12:24→20:27)
[2023-12-10] MEDS ORDERED: Ipratropium/Albuterol 3 ML NEB NEB SCH (13:00)
[2023-12-10] MEDS: Vancomycin (BATCH) 1.25 GM in Premix 1 BAG IVPB SCH (14:25)
[2023-12-10] MEDS: Mometasone 100 MCG HFA INHALER (RT USE) INH SCH (18:29)
[2023-12-10] MEDS: Mirtazapine 15 MG TAB PO SCH (20:29)
[2023-12-10] MEDS: CeleCOXIB 100 MG CAP PO SCH (20:29)
[2023-12-10] MEDS: Tamsulosin HCl 0.4 MG CAP PO SCH (20:29)
[2023-12-10] MEDS ORDERED: CeleCOXIB 100 MG CAP PO SCH (21:00)
[2023-12-11 04:27] LABS: #Monocytes 0.7 thou/uL (0.11-0.59); #Neutrophils 12.7 thou/uL (1.40-6.50); %Basophils 0.2 % (0.0-1.0); %Lymphocytes 6.3 % (21.0-51.0); %Monocytes 4.5 % (0.0-10.0); %Neutrophils 87.6 % (42.0-75.0); Hematocrit 31.5 % (42.0-52.0); Hemoglobin 10.6 g/dL (14.0-18.0); Mean Corpuscular HGB CONC 33.7 g/dL (32.0-36.0); Mean Corpuscular Hemoglobin 33.9 pg (27.0-31.0); Mean Corpuscular Volume 100.6 fl (78.0-98.0); Mean Platelet Volume 9.9 fL (7.4-10.4); Platelet Count 163 10x3/uL (130-400); RBC Distribution Width 15.1 % (11.5-14.5); Red Blood Cell (RBC) Count 3.13 mill/uL (4.70-6.10); White Blood Cell (WBC) Count 14.5 10x3/uL (4.8-10.8)
[2023-12-11 04:52] LABS: ALT (SGPT) 29 U/L (8-55); AST (SGOT) 26 U/L (5-34); Albumin 2.6 g/dL (3.4-4.8); Alkaline Phosphatase 70 U/L (40-110); Anion Gap 11 mmol/L (10-20); BUN (Urea Nitrogen) 21 mg/dL (8.4-25.7); Bilirubin, Total 0.5 mg/dL (0.2-1.2); Calc. Creatinine Clearance 85 mL/min (70-130); Calcium 8.5 mg/dL (7.8-10.44); Carbon Dioxide 14 mmol/L (23-31); Chloride 109 mmol/L (98-107); Estimated GFR 80; Glucose 145 mg/dL (83-110); Potassium 4.7 mmol/L (3.5-5.1); Protein, Total 7.6 g/dL (5.8-8.1); Sodium 129 mmol/L (136-145)
[2023-12-11] MEDS ORDERED: Non-Formulary Item 1 EACH (Fluticasone/Umeclidin/Vilanter [Trelegy Ellipta 100-62.5-25] 1 IH SCH (09:00)
[2023-12-11] MEDS: Benzonatate 100 MG CAP PO PRN (10:39)
[2023-12-11 12:59] LABS: Vancomycin, Trough 10.6 ug/mL
[2023-12-11] MEDS: traZODone HCl 50 MG TAB PO PRN (15:45)
[2023-12-11] MEDS: Vancomycin HCl 750 MG in Sodium Chloride 0.9% 250 ML 250 ML IVPB SCH (15:50)
[2023-12-11] MEDS: Vancomycin HCl 750 MG VIAL ONE (16:49)
[2023-12-11] MEDS: cloNIDine 0.1 MG TAB PO SCH (17:55)
[2023-12-11] MEDS: Ipratropium/Albuterol 3 ML NEB NEB PRN (18:23)
[2023-12-11] MEDS: Nystatin Powder 15 GM BOT TOP SCH (21:13)
[2023-12-12 05:00] LABS: #Monocytes 0.4 thou/uL (0.11-0.59); #Neutrophils 5.6 thou/uL (1.40-6.50); %Basophils 0.3 % (0.0-1.0); %Lymphocytes 9.8 % (21.0-51.0); %Monocytes 5.3 % (0.0-10.0); %Neutrophils 83.2 % (42.0-75.0); Hematocrit 30.6 % (42.0-52.0); Hemoglobin 10.2 g/dL (14.0-18.0); Mean Corpuscular HGB CONC 33.3 g/dL (32.0-36.0); Mean Corpuscular Hemoglobin 33.2 pg (27.0-31.0); Mean Corpuscular Volume 99.7 fl (78.0-98.0); Mean Platelet Volume 9.8 fL (7.4-10.4); Platelet Count 156 10x3/uL (130-400); RBC Distribution Width 14.6 % (11.5-14.5); Red Blood Cell (RBC) Count 3.07 mill/uL (4.70-6.10); White Blood Cell (WBC) Count 6.7 10x3/uL (4.8-10.8)
[2023-12-12 05:35] LABS: Anion Gap 13 mmol/L (10-20); BUN (Urea Nitrogen) 26 mg/dL (8.4-25.7); Calc. Creatinine Clearance 68 mL/min (70-130); Calcium 8.5 mg/dL (7.8-10.44); Carbon Dioxide 14 mmol/L (23-31); Chloride 107 mmol/L (98-107); Estimated GFR 60; Glucose 170 mg/dL (83-110); Potassium 4.3 mmol/L (3.5-5.1); Sodium 130 mmol/L (136-145)
[2023-12-12] MEDS: methylPREDNISolone Sod Succ 40 MG VIAL IVP SCH (09:29)
[2023-12-12] MEDS: dilTIAZem CD 180 MG CAP PO SCH (09:31)
[2023-12-12] MEDS: ALPRAZolam 0.5 MG TAB PO SCH (09:31)
[2023-12-12] MEDS: Magnesium Citrate 300 ML BOT PO SCH (11:35)
[2023-12-12] MEDS: Bisacodyl 10 MG SUPP PR SCH (11:35)
[2023-12-12] MEDS: ALPRAZolam 0.25 MG TAB PO PRN (17:31)
[2023-12-12] MEDS: Senokot S 8.6-50 MG TAB PO SCH (21:02)
[2023-12-13 03:04] LABS: Vancomycin, Trough 17.7 ug/mL
[2023-12-13] MEDS: guaiFENesin ER 600 MG TAB PO SCH ×2 (12:26→20:58)
[2023-12-13] MEDS: GoLYTELY 4,000 ml Bottle PO SCH (12:41)
[2023-12-13] MEDS: Mineral Oil ENEMA PR SCH (12:49)
[2023-12-13] MEDS: Acetylcysteine 20% 200 MG/ML 30 ML VIAL INH SCH (13:56)
[2023-12-13] MEDS: methylPREDNISolone Sod Succ 40 MG VIAL IVP SCH (20:59)
[2023-12-13] MEDS: Albuterol 200 PUFF (6.7GM INHALER) INH PRN (21:52)
[2023-12-14] MEDS: hydrALAZINE 20 MG/ML VIAL SLOW IVP SCH (01:14)
[2023-12-14] MEDS: Ondansetron ODT 4 MG TAB PO PRN (09:22)
[2023-12-14] MEDS: dilTIAZem CD 120 MG CAP PO SCH (11:00)
[2023-12-14] MEDS: Lactulose 20 GM (30 mL) UDCUP PO SCH ×2 (11:01→21:34)
[2023-12-14] MEDS: Mineral Oil ENEMA PR SCH (11:02)
[2023-12-14 13:08] LABS: Vancomycin, Trough 18.6 ug/mL
[2023-12-14] MEDS ORDERED: Ipratropium/Albuterol 3 ML NEB NEB PRN (14:53)
[2023-12-14] MEDS: hydrALAZINE 25 MG TAB PO SCH (14:56)
[2023-12-14] MEDS ORDERED: Vancomycin Dose by Levels Sliding Scale (Wt 71-99) FS SCH (15:45)
[2023-12-14] MEDS: Ipratropium/Albuterol 3 ML NEB NEB SCH ×2 (16:41→18:12)
[2023-12-15 07:48] VITALS: TEMP 97.7
[2023-12-15] MEDS: dilTIAZem CD 240 MG CAP PO SCH (09:33)
[2023-12-15 11:40] VITALS: BP 151/77
== END 2023-12-15 10:03 | disposition home or self-care (01) | DRG 872 ==
LOC: ERS 04:14 → ERHOLD 06:51 → 2NO 16:28 → T4-A 12-14 14:14
PROVIDERS: ADMIT Internal Medicine; ATTEND Family Medicine
DX: A41.9 Sepsis, unspecified organism (principal); J44.1 Chronic obstructive pulmonary disease with (acute) exacerbation; L03.114 Cellulitis of left upper limb; N17.9 Acute kidney failure, unspecified; E87.1 Hypo-osmolality and hyponatremia; K21.9 Gastro-esophageal reflux disease without esophagitis; R74.01 Elevation of levels of liver transaminase levels; K59.00 Constipation, unspecified; I10 Essential (primary) hypertension; N40.0 Benign prostatic hyperplasia without lower urinary tract symptoms; Z98.890 Other specified postprocedural states; Z79.899 Other long term (current) drug therapy; Z90.2 Acquired absence of lung [part of]; Z87.891 Personal history of nicotine dependence; M79.604 Pain in right leg; M79.605 Pain in left leg; R60.0 Localized edema; R94.5 Abnormal results of liver function studies
CPT/HCPCS: 36415; 36416; 71275; 74019; 80048; 80053; 80202; 83605; 83735; 84484; 85025; 85379; 87807; 93005; 93970; 94640; 96361; 96374; 96375; 96376; 97139; C9113; J0132; J0360; J0692; J1650; J2270; J2405; J2920; J3370; J3490; J7050; J7620; Q0162

== ENCOUNTER 2023-12-15 18:44 | Emergency (ER) | payer MEDICARE ==
[2023-12-15 19:45] LABS: Hematocrit 34.7 % (42.0-52.0); Hemoglobin 11.8 g/dL (14.0-18.0); Manual Diff?? YES; Mean Corpuscular Hemoglobin 33.2 pg (27.0-31.0); Mean Corpuscular Volume 97.7 fl (78.0-98.0); Mean Platelet Volume 9.4 fL (7.4-10.4); Platelet Count 225 10x3/uL (130-400); RBC Distribution Width 14.8 % (11.5-14.5); Red Blood Cell (RBC) Count 3.55 mill/uL (4.70-6.10); White Blood Cell (WBC) Count 10.8 10x3/uL (4.8-10.8)
[2023-12-15 19:46] LABS: Delete Auto Diff?? YES
[2023-12-15] MEDS ORDERED: Morphine 4 MG/ML VIAL ONE ×2 (20:03→20:56)
[2023-12-15] MEDS ORDERED: Ondansetron PF 4 MG/2 ML Vial ONE (20:03)
[2023-12-15 20:05] LABS: Troponin I 0.016 ng/mL (< 0.028)
[2023-12-15 20:06] LABS: ALT (SGPT) 93 U/L (8-55); AST (SGOT) 63 U/L (5-34); Albumin 2.9 g/dL (3.4-4.8); Alkaline Phosphatase 67 U/L (40-110); Anion Gap 13 mmol/L (10-20); BUN (Urea Nitrogen) 21 mg/dL (8.4-25.7); Bilirubin, Total 0.7 mg/dL (0.2-1.2); Calc. Creatinine Clearance 0 mL/min (70-130); Calcium 8.5 mg/dL (7.8-10.44); Carbon Dioxide 17 mmol/L (23-31); Chloride 106 mmol/L (98-107); Estimated GFR 80; Globulin 4.6 g/dL (2.4-3.5); Glucose 98 mg/dL (83-110); Protein, Total 7.5 g/dL (5.8-8.1); Sodium 132 mmol/L (136-145)
[2023-12-15 20:09] LABS: Anisocytosis SLIGHT = 6-15 cells HPF (0-5); CellaVision Operator ID lab.dlt; Lymphocytes 1 % (21-51); Metamyelocyte 1 % (0-0); Monocytes 9 % (0-10); Neutrophil 89 % (42-75); Platelet Adequacy Comment Platelets Normal; Poikilocytosis SLIGHT = 6-15 cells HPF (0-5); Total Cell Count 100
[2023-12-15] MEDS ORDERED: Pantoprazole 40 MG VIAL ONE (20:56)
[2023-12-15] MEDS ORDERED: Lidocaine 2% Viscous 10 mL, Alum & Magn 30 mL SSW SCH (22:30)
== END 2023-12-16 00:05 | disposition home or self-care (01) ==
LOC: ERS 18:44
DX: J44.1 Chronic obstructive pulmonary disease with (acute) exacerbation (principal); R60.0 Localized edema; R94.5 Abnormal results of liver function studies; I10 Essential (primary) hypertension; Z87.891 Personal history of nicotine dependence
CPT/HCPCS: 36415; 80053; 84484; 85025; 93005; 93970; C9113; J2270; J2405

== ENCOUNTER 2024-02-25 16:19 | Inpatient (IN) | payer MEDICARE ==
[2024-02-25] MEDS ORDERED: Ipratropium/Albuterol 3 ML NEB ONE ×2 (16:25→17:06)
[2024-02-25] MEDS ORDERED: Cefepime 2 GM VIAL ONE (16:31)
[2024-02-25] MEDS ORDERED: Sodium Chloride 0.9% 100 ML ONE (16:31)
[2024-02-25] MEDS ORDERED: fentaNYL 50 mcg/mL 1 mL Vial ONE (16:40)
[2024-02-25 16:49] LABS: #Basophils Less than 0.03 10x3/uL (0.0-0.2); #Eosinphils Less than 0.03 10x3/uL (0.0-0.7); %Basophils 0.1 % (0.0-1.0); %Eosinophils 0.1 % (0.0-10.0); %Monocytes 4.9 % (0.0-10.0); %Neutrophils 89.1 % (42.0-75.0); Hematocrit 37.4 % (42.0-52.0); Hemoglobin 12.9 g/dL (14.0-18.0); Mean Corpuscular HGB CONC 34.5 g/dL (32.0-36.0); Mean Corpuscular Hemoglobin 33.9 pg (27.0-31.0); Mean Corpuscular Volume 98.4 fL (78.0-98.0); Mean Platelet Volume 10.4 fL (7.4-10.4); Platelet Count 81 10x3/uL (130-400)
[2024-02-25 16:55] LABS: ALT (SGPT) 320 U/L (8-55); AST (SGOT) 192 U/L (5-34); Albumin 2.6 g/dL (3.4-4.8); Alkaline Phosphatase 101 U/L (40-110); Anion Gap 9 mmol/L (10-20); BUN (Urea Nitrogen) 11 mg/dL (8.4-25.7); Bilirubin, Total 1.6 mg/dL (0.2-1.2); Calc. Creatinine Clearance 0 mL/min (70-130); Calcium 8.1 mg/dL (7.8-10.44); Carbon Dioxide 23 mmol/L (23-31); Chloride 106 mmol/L (98-107); Estimated GFR 89; Globulin 4.7 g/dL (2.4-3.5); Glucose 119 mg/dL (83-110); Magnesium 1.8 mg/dL (1.6-2.6); Potassium 4.1 mmol/L (3.5-5.1); Protein, Total 7.3 g/dL (5.8-8.1); Sodium 134 mmol/L (136-145)
[2024-02-25 17:00] LABS: Troponin I Less than 0.010 ng/mL (< 0.028)
[2024-02-25 17:04] LABS: Actual Bicarbonate (HCO3a) 23.6 mEq/L (22-28); Analyzer IN Cardio ER; Base Excess (BEa) 0.6 mEq/L (-2.0 to +3.0); CO2 Tension 32.5 mmHg (35.0-45.0); Carboxyhemoglobin (COHb) 0.2 gm% (0.0-3.0); Hematocrit-ABG 38 % (42.0-52.0); Hemoglobin (Hb) 12.9 g/dL (14.0-18.0); O2 Tension (PaO2), arterial 542.5 mmHg (> 70.0); Potassium - ABG Lab 4.29 mmol/L (3.70-5.30); pH, Arterial 7.478 (7.35-7.45)
[2024-02-25] MEDS ORDERED: Albuterol 2.5 MG (3 mL) NEB ONE (17:06)
[2024-02-25 17:10] LABS: ALV-art Gradient 129.875 mmHg (0-20); Puncture Site Right Radial
[2024-02-25] MEDS ORDERED: Dexamethasone 10 MG/ML VIAL ONE (17:15)
[2024-02-25] MEDS ORDERED: Morphine 4 MG/ML VIAL ONE (17:24)
[2024-02-25] MEDS ORDERED: Ondansetron PF 4 MG/2 ML Vial ONE (17:24)
[2024-02-25] MEDS ORDERED: Ondansetron ODT 4 MG TAB PO PRN (18:13)
[2024-02-25] MEDS ORDERED: hydrALAZINE 20 MG/ML VIAL SLOW IVP PRN (18:13)
[2024-02-25] MEDS ORDERED: Ipratropium/Albuterol 3 ML NEB NEB PRN ×2 (18:13→19:59)
[2024-02-25] MEDS ORDERED: Ondansetron PF 4 MG/2 ML Vial IVP PRN (18:13)
[2024-02-25] MEDS ORDERED: Acetaminophen 325 MG TAB PO PRN (18:13)
[2024-02-25] MEDS ORDERED: LORazepam 2 MG/ML SYR.(CARPUJECT) ONE (18:45)
[2024-02-25 20:41] VITALS: BMI 28.1
[2024-02-25] MEDS: Vancomycin (BATCH) 2.5 GM in Premix 1 BAG IVPB SCH (20:54)
[2024-02-25] MEDS ORDERED: Cefepime 1 MG in Syringe 0 ML IVPB SCH (21:00)
[2024-02-25] MEDS ORDERED: Vancomycin 1 GM in Premix 1 BAG IVPB SCH (21:00)
[2024-02-25] MEDS ORDERED: QUEtiapine 25 MG TAB PO SCH (21:00)
[2024-02-25] MEDS: Guaifenesin DM 100-10/5 ML UDCUP PO PRN (21:00)
[2024-02-25] MEDS: Morphine 2 MG/ML VIAL SLOW IVP PRN (21:13)
[2024-02-25] MEDS ORDERED: Polyethylene Glycol 3350 17 GM Packet PO PRN (21:21)
[2024-02-25] MEDS ORDERED: traMADol HCl 50 MG TAB PO PRN (21:21)
[2024-02-25] MEDS: Mometasone 100 MCG/Formoterol 5 MCG 120 PUFF INHALER INH SCH (22:10)
[2024-02-25] MEDS: Ipratropium/Albuterol 3 ML NEB NEB SCH ×2 (22:14→22:17)
[2024-02-25 23:36] LABS: Legionella Urinary Ag Negative (Negative)
[2024-02-25 23:39] LABS: Strep pneumo Urine Ag NEGATIVE (NEGATIVE)
[2024-02-25] MEDS: methylPREDNISolone Sod Succ 40 MG VIAL IVP SCH (23:55)
[2024-02-26] MEDS: Cefepime 2 GM in Sodium Chloride 0.9% 100 ML IVPB SCH (05:12)
[2024-02-26 05:58] LABS: #Basophils Less than 0.03 10x3/uL (0.0-0.2); #Eosinphils Less than 0.03 10x3/uL (0.0-0.7); %Basophils 0.2 % (0.0-1.0); %Lymphocytes 4.9 % (21.0-51.0); %Monocytes 2.9 % (0.0-10.0); Hematocrit 38.4 % (42.0-52.0); Hemoglobin 12.8 g/dL (14.0-18.0); Mean Corpuscular HGB CONC 33.3 g/dL (32.0-36.0); Mean Corpuscular Hemoglobin 34.3 pg (27.0-31.0); Mean Corpuscular Volume 102.9 fL (78.0-98.0); Mean Platelet Volume 10.8 fL (7.4-10.4); Platelet Count 57 10x3/uL (130-400); RBC Distribution Width 15.3 % (11.5-14.5); Red Blood Cell (RBC) Count 3.73 mill/uL (4.70-6.10)
[2024-02-26 06:03] LABS: Vancomycin, Random 17.7 ug/mL (See Comment)
[2024-02-26 06:06] LABS: Acetaminophen Less than 10 mcg/mL (10.0-30.0); Alcohol Less than 10.0 mg/dL (Less than 10); Salicylate Less than 8.0 mg/dL (15.0-30.0)
[2024-02-26 06:07] LABS: ALT (SGPT) 278 U/L (8-55); AST (SGOT) 132 U/L (5-34); Albumin 2.5 g/dL (3.4-4.8); Alkaline Phosphatase 98 U/L (40-110); Anion Gap 13 mmol/L (10-20); BUN (Urea Nitrogen) 16 mg/dL (8.4-25.7); Bilirubin, Total 1.1 mg/dL (0.2-1.2); Calc. Creatinine Clearance 94 mL/min (70-130); Carbon Dioxide 20 mmol/L (23-31); Chloride 107 mmol/L (98-107); Estimated GFR 90; Globulin 4.4 g/dL (2.4-3.5); Glucose 197 mg/dL (83-110); Potassium 4.6 mmol/L (3.5-5.1); Protein, Total 6.9 g/dL (5.8-8.1); Sodium 135 mmol/L (136-145)
[2024-02-26 06:24] LABS: Hep C Index 5.74 S/CO (0-0.79)
[2024-02-26 06:40] LABS: HBCM Index 0.57 S/CO (0-0.79); HBsAg Index 3174.78 S/CO (0-0.99); Hep A IgM AB NONREACTIVE (NonReactive); Hep A IgM S/CO 0.21 S/CO (0-0.79); Hep B Surf Ag Reflx Confirmation S/CO (NonReactive); Hep C IgG Ab Reflex HepC Qnt S/CO (NonReactive); Hepatitis B Core IgM Abs NONREACTIVE S/CO (NonReactive)
[2024-02-26 06:50] LABS: INR-International Normal Ratio 1.1; PTT 29.6 sec (22.9-36.1); Prothrombin Time 14.6 sec (12.0-14.7)
[2024-02-26] MEDS: Vancomycin 1 GM in Premix 1 BAG IVPB SCH (08:03)
[2024-02-26] MEDS: Enoxaparin 40 MG (0.4 mL) SYRINGE SC SCH (08:36)
[2024-02-26] MEDS: Pantoprazole DR 40 MG TAB PO SCH (08:36)
[2024-02-26] MEDS: Furosemide 20 MG TAB PO SCH (08:37)
[2024-02-26] MEDS: NIFEdipine XL 90 MG ER.TAB PO SCH (08:37)
[2024-02-26] MEDS: hydrOXYzine 25 MG TAB PO PRN (12:08)
[2024-02-26] MEDS: Benzonatate 100 MG CAP PO SCH ×2 (12:21→15:38)
[2024-02-26 12:45] VITALS: BMI 28.6
[2024-02-26] MEDS: Budesonide 0.5 MG/2 ML NEB INH SCH (18:12)
[2024-02-26] MEDS: CALCIUM GLUC 1 GM/NS 50 ML 1 GM in Premix 1 BAG IVPB SCH (20:07)
[2024-02-26] MEDS: Tamsulosin HCl 0.4 MG CAP PO SCH (20:08)
[2024-02-27] MEDS: guaiFENesin/Codeine 200 mg/20 mg 10 ml Cup PO PRN (00:51)
[2024-02-27 04:00] LABS: Actual Bicarbonate (HCO3v) 18.6 mEq/L (22-28); Base Excess -3.6 mEq/L (-2.0 to +3.0); Calcium, Ionized (venous) 1.08 mmol/L (1.16-1.32); Chloride (VBG) 103 mmol/L (98-106); Hematocrit-VBG 37 % (42.0-52.0); Hemoglobin (Hb) 12.6 g/dL (12.6-17.4); Potassium (VBG) 4.45 mmol/L (3.70-5.30); Sodium 132 mmol/L (133-146); pH (venous) 7.472 (7.32-7.43)
[2024-02-27 04:10] LABS: #Basophils 0.06 10x3/uL (0.0-0.2); %Basophils 0.3 % (0.0-1.0); %Eosinophils 0.3 % (0.0-10.0); %Lymphocytes 3.5 % (21.0-51.0); %Monocytes 4.6 % (0.0-10.0); %Neutrophils 89.2 % (42.0-75.0); Hematocrit 34.2 % (42.0-52.0); Hemoglobin 11.6 g/dL (14.0-18.0); Mean Corpuscular HGB CONC 33.9 g/dL (32.0-36.0); Mean Corpuscular Hemoglobin 33.1 pg (27.0-31.0); Mean Corpuscular Volume 97.7 fL (78.0-98.0); Mean Platelet Volume 10.3 fL (7.4-10.4); Platelet Count 108 10x3/uL (130-400); RBC Distribution Width 15.3 % (11.5-14.5)
[2024-02-27] MEDS: Mag-Al 1200 mg/1200 mg/30 ML UDCUP PO PRN (04:14)
[2024-02-27 04:30] LABS: Anion Gap 13 mmol/L (10-20); BUN (Urea Nitrogen) 20 mg/dL (8.4-25.7); Calc. Creatinine Clearance 91 mL/min (70-130); Calcium 8.9 mg/dL (7.8-10.44); Carbon Dioxide 17 mmol/L (23-31); Chloride 105 mmol/L (98-107); Estimated GFR 86; Glucose 157 mg/dL (83-110); Potassium 4.4 mmol/L (3.5-5.1); Sodium 131 mmol/L (136-145)
[2024-02-27] MEDS: HYDROcodone/Acetaminophen 5/325 mg Tablet PO PRN (16:33)
[2024-02-27 17:59] LABS: Hep C Index 6.57 S/CO (0-0.79)
[2024-02-27] MEDS: methylPREDNISolone Sod Succ 40 MG VIAL IVP SCH (18:18)
[2024-02-27 18:29] LABS: Hep B Surf Ag Reflx Confirmation S/CO (NonReactive)
[2024-02-27 18:30] LABS: HBCM Index 0.77 S/CO (0-0.79); HBsAg Index 3386.61 S/CO (0-0.99); Hep A IgM AB NONREACTIVE (NonReactive); Hep A IgM S/CO 0.25 S/CO (0-0.79); Hep C IgG Ab Reflex HepC Qnt S/CO (NonReactive); Hepatitis B Core IgM Abs NONREACTIVE S/CO (NonReactive)
[2024-02-27] MEDS: Vancomycin HCl 750 MG in Sodium Chloride 0.9% 250 ML 250 ML IVPB SCH (20:53)
[2024-02-28 04:17] VITALS: TEMP 98.1
[2024-02-28 05:15] LABS: #Basophils 0.07 10x3/uL (0.0-0.2); %Basophils 0.4 % (0.0-1.0); %Eosinophils 0.4 % (0.0-10.0); %Lymphocytes 4.2 % (21.0-51.0); %Monocytes 7.6 % (0.0-10.0); %Neutrophils 86.3 % (42.0-75.0); Hematocrit 35.5 % (42.0-52.0); Hemoglobin 12.1 g/dL (14.0-18.0); Mean Corpuscular HGB CONC 34.1 g/dL (32.0-36.0); Mean Corpuscular Hemoglobin 33.6 pg (27.0-31.0); Mean Corpuscular Volume 98.6 fL (78.0-98.0); Mean Platelet Volume 10.3 fL (7.4-10.4); Platelet Count 128 10x3/uL (130-400); RBC Distribution Width 15.3 % (11.5-14.5)
[2024-02-28 05:29] LABS: Anion Gap 15 mmol/L (10-20); BUN (Urea Nitrogen) 27 mg/dL (8.4-25.7); Calc. Creatinine Clearance 78 mL/min (70-130); Calcium 8.7 mg/dL (7.8-10.44); Carbon Dioxide 18 mmol/L (23-31); Chloride 103 mmol/L (98-107); Estimated GFR 70; Glucose 166 mg/dL (83-110); Potassium 4.6 mmol/L (3.5-5.1); Sodium 131 mmol/L (136-145)
[2024-02-28 08:59] VITALS: BP 119/45
[2024-02-28] MEDS ORDERED: Amoxicillin/Potassium Clav 875 MG TAB PO SCH (21:00)
[2024-02-28] MEDS ORDERED: Doxycycline 100 MG CAP PO SCH (21:00)
== END 2024-02-28 13:23 | disposition home or self-care (01) | DRG 871 ==
LOC: ERS 16:19 → CCU 18:14 → IMCU/EMU 02-27 13:41 → CCU 02-27 13:44 → MSONC 02-27 14:59
PROVIDERS: ADMIT Internal Medicine; ATTEND Internal Medicine
PROC: 4A033R1 Measurement of Arterial Saturation, Peripheral, Percutaneous Approach (ICD-10-PCS; principal; 2024-02-25)
PROC: 3E03329 Introduction of Other Anti-infective into Peripheral Vein, Percutaneous Approach (ICD-10-PCS; 2024-02-25)
DX: A41.9 Sepsis, unspecified organism (principal); J18.9 Pneumonia, unspecified organism; J96.21 Acute and chronic respiratory failure with hypoxia; J44.1 Chronic obstructive pulmonary disease with (acute) exacerbation; N40.0 Benign prostatic hyperplasia without lower urinary tract symptoms; K21.9 Gastro-esophageal reflux disease without esophagitis; D69.6 Thrombocytopenia, unspecified; I10 Essential (primary) hypertension; Z79.899 Other long term (current) drug therapy; Z98.890 Other specified postprocedural states; Z87.891 Personal history of nicotine dependence
CPT/HCPCS: 36415; 76705; 80048; 80053; 80074; 80202; 80307; 82805; 83605; 83735; 84145; 85025; 85610; 85730; 87070; 87077; 87081; 87186; 87205; 87340; 87449; 87517; 87899; 93005; 94640; 94660; 94664; 96365; 96366; 96368; 96375; 97139; J0613; J0692; J1100; J1650; J2060; J2270; J2272; J2405; J2920; J3010; J3370; J3370-JW; J3490; J7050; J7611; J7620; J7626

== ENCOUNTER 2024-04-05 06:33 | Inpatient (IN) | payer MEDICARE ==
[2024-04-05 06:59] LABS: #Basophils Less than 0.03 10x3/uL (0.0-0.2); #Eosinphils Less than 0.03 10x3/uL (0.0-0.7); %Basophils 0.1 % (0.0-1.0); %Monocytes 7.5 % (0.0-10.0); %Neutrophils 81.6 % (42.0-75.0); Hematocrit 32.5 % (42.0-52.0); Hemoglobin 11.2 g/dL (14.0-18.0); Mean Corpuscular HGB CONC 34.5 g/dL (32.0-36.0); Mean Corpuscular Volume 98.8 fL (78.0-98.0); Mean Platelet Volume 10.5 fL (7.4-10.4); Platelet Count 125 10x3/uL (130-400); Red Blood Cell (RBC) Count 3.29 mill/uL (4.70-6.10)
[2024-04-05] MEDS ORDERED: fentaNYL 50 mcg/mL 1 mL Vial ONE (07:16)
[2024-04-05 07:17] LABS: ALT (SGPT) 130 U/L (8-55); AST (SGOT) 76 U/L (5-34); Alkaline Phosphatase 143 U/L (40-110); Anion Gap 14 mmol/L (10-20); BUN (Urea Nitrogen) 37 mg/dL (8.4-25.7); Calc. Creatinine Clearance 0 mL/min (70-130); Calcium 8.5 mg/dL (7.8-10.44); Carbon Dioxide 32 mmol/L (23-31); Chloride 88 mmol/L (98-107); Estimated GFR 39; Globulin 3.9 g/dL (2.4-3.5); Glucose 200 mg/dL (83-110); Potassium 2.9 mmol/L (3.5-5.1); Protein, Total 6.9 g/dL (5.8-8.1); Sodium 131 mmol/L (136-145)
[2024-04-05 07:19] LABS: INR-International Normal Ratio 1.3; PTT 31.8 sec (22.9-36.1); Prothrombin Time 16.4 sec (12.0-14.7)
[2024-04-05 07:21] LABS: Troponin I Less than 0.010 ng/mL (< 0.028)
[2024-04-05] MEDS ORDERED: PROPOFOL 20 ML ONE (07:47)
[2024-04-05] MEDS ORDERED: Ipratropium/Albuterol 3 ML NEB NEB PRN (09:17)
[2024-04-05] MEDS ORDERED: Albuterol 200 PUFF (6.7GM INHALER) INH PRN (09:24)
[2024-04-05] MEDS ORDERED: traMADol HCl 50 MG TAB PO PRN (09:29)
[2024-04-05 09:49] LABS: Lactic Acid 3.2 mmol/L (0.5-2.2)
[2024-04-05 10:08] LABS: ALT (SGPT) 127 U/L (8-55); AST (SGOT) 79 U/L (5-34); Albumin 3.1 g/dL (3.4-4.8); Alkaline Phosphatase 142 U/L (40-110); Bilirubin, Direct 0.5 mg/dL (0.1-0.3); Bilirubin, Total 1.1 mg/dL (0.2-1.2); Protein, Total 6.9 g/dL (5.8-8.1)
[2024-04-05] MEDS: Morphine IR Tab 15 MG TAB PO PRN (10:50)
[2024-04-05] MEDS: Potassium Chloride 20 MEQ in Premix 1 BAG IVPB SCH (10:52)
[2024-04-05] MEDS: Sodium Chloride 0.9% 1,000 ML IV SCH ×2 (10:55→15:15)
[2024-04-05 11:23] VITALS: BMI 26.4
[2024-04-05] MEDS ORDERED: Iopamidol-370 76% 500 ML MDV (1 ML CHARGE) ONE (12:12)
[2024-04-05] MEDS ORDERED: Calcium Carbonate 500 MG ChewTAB PO PRN (12:29)
[2024-04-05] MEDS: traMADol HCl 50 MG TAB PO SCH (14:22)
[2024-04-05] MEDS: tiZANidine HCl 4 MG TAB PO PRN (14:26)
[2024-04-05] MEDS: Lactulose 20 GM (30 mL) UDCUP PO SCH (14:26)
[2024-04-05] MEDS: Ipratropium/Albuterol 3 ML NEB NEB SCH (14:42)
[2024-04-05 15:10] LABS: Bacteria/HPF None Seen HPF (None Seen); Bilirubin Negative (Negative); Blood, Urine Negative (Negative); CAUTI Indications for Culture Acute Hematuria; Clarity Clear (Clear); Glucose, Urine (Dipstick) Normal (Negative); Ketone, Urine Negative (Negative); Leukocyte Negative Leu/uL (Negative); Nitrite Negative (Negative); Protein, Urine (Dipstick) Negative (Neg-Trace); RBC/HPF 0-3 HPF (0-3); Specific Gravity, Urine 1.028 (1.002-1.036); Squamous Epithelial None Seen HPF (0-3); Urobilinogen Normal mg/dL (Less than 2); WBC/HPF 0-3 HPF (0-3); pH, Urine 5.5 (5.0-9.0)
[2024-04-05 15:24] LABS: Amphetamine Not Detected (NotDetected); Barbiturates Screen Not Detected (NotDetected); Benzodiazepine Screen Detected (NotDetected); Cocaine Metabolite Screen Not Detected (NotDetected); Methadone Not Detected (NotDetected); Methamphetamine Not Detected (NotDetected); Opiate Screen Detected (NotDetected); Oxycodone Screen Not Detected (NotDetected); Phencyclidine (PCP) Not Detected (NotDetected); THC/Cannabinoid Screen Not Detected (NotDetected); Tricyclic Screen Not Detected (NotDetected)
[2024-04-05 15:27] LABS: Urine Culture Reflex No No
[2024-04-05 16:58] LABS: Magnesium 1.6 mg/dL (1.6-2.6); Phosphorus 2.9 mg/dL (2.3-4.7)
[2024-04-05] MEDS: Mometasone 100 MCG HFA INHALER (RT USE) INH SCH (19:04)
[2024-04-05] MEDS: Magnesium 2 GM/50 ML(in water) 2 GM in Premix 1 BAG IVPB SCH (20:08)
[2024-04-05] MEDS: Lactated Ringer's 1,000 ML IV SCH (20:08)
[2024-04-05] MEDS: Famotidine/PF 20 mg/2ml Vial SLOW IVP SCH (20:20)
[2024-04-05] MEDS: Pantoprazole DR 40 MG TAB PO SCH (20:21)
[2024-04-05] MEDS: Senokot S 8.6-50 MG TAB PO SCH (20:21)
[2024-04-05] MEDS: Tamsulosin HCl 0.4 MG CAP PO SCH (20:22)
[2024-04-05] MEDS: Benzonatate 100 MG CAP PO PRN (20:23)
[2024-04-05] MEDS: Lorazepam 1 MG TAB PO PRN (20:23)
[2024-04-05] MEDS: Metoprolol Tartrate 25 MG TAB PO SCH (20:24)
[2024-04-05] MEDS ORDERED: Metoprolol Tartrate 25 MG TAB PO SCH (21:00)
[2024-04-06 06:17] LABS: #Basophils Less than 0.03 10x3/uL (0.0-0.2); %Basophils 0.1 % (0.0-1.0); %Eosinophils 0.5 % (0.0-10.0); %Lymphocytes 11.7 % (21.0-51.0); %Monocytes 7.4 % (0.0-10.0); %Neutrophils 79.6 % (42.0-75.0); Hematocrit 34.4 % (42.0-52.0); Hemoglobin 11.5 g/dL (14.0-18.0); Mean Corpuscular HGB CONC 33.4 g/dL (32.0-36.0); Mean Corpuscular Hemoglobin 34.2 pg (27.0-31.0); Mean Corpuscular Volume 102.4 fL (78.0-98.0); Mean Platelet Volume 11.1 fL (7.4-10.4); Platelet Count 100 10x3/uL (130-400); RBC Distribution Width 16.1 % (11.5-14.5); Red Blood Cell (RBC) Count 3.36 mill/uL (4.70-6.10)
[2024-04-06 06:36] LABS: Lactic Acid 2.1 mmol/L (0.5-2.2)
[2024-04-06 06:38] LABS: Phosphorus 2.9 mg/dL (2.3-4.7)
[2024-04-06 06:43] LABS: Anion Gap 13 mmol/L (10-20); BUN (Urea Nitrogen) 28 mg/dL (8.4-25.7); Calc. Creatinine Clearance 62 mL/min (70-130); Calcium 8.2 mg/dL (7.8-10.44); Carbon Dioxide 27 mmol/L (23-31); Chloride 98 mmol/L (98-107); Estimated GFR 60; Glucose 114 mg/dL (83-110); Magnesium 2.1 mg/dL (1.6-2.6); Potassium 2.9 mmol/L (3.5-5.1); Sodium 135 mmol/L (136-145)
[2024-04-06] MEDS ORDERED: Electrolyte Replacement Protocol FS PRN (07:30)
[2024-04-06] MEDS: Potassium Chloride 20 MEQ TAB PO SCH ×2 (10:10→18:10)
[2024-04-06] MEDS: Potassium Chloride 20 MEQ in Premix 1 BAG IVPB SCH (10:10)
[2024-04-06] MEDS: Furosemide 20 MG TAB PO SCH (10:10)
[2024-04-06] MEDS: Polyethylene Glycol 3350 17 GM Packet PO SCH (10:11)
[2024-04-06] MEDS: Ondansetron PF 4 MG/2 ML Vial IVP PRN (12:19)
[2024-04-06] MEDS ORDERED: CEFAZOLIN 2 GM in Sodium Chloride 0.9% 100 ML IVPB SCH (13:00)
[2024-04-06] MEDS ORDERED: fentaNYL 50 mcg/mL 1 mL Vial ONE (13:56)
[2024-04-06] MEDS ORDERED: Ondansetron PF 4 MG/2 ML Vial ONE (13:56)
[2024-04-06] MEDS ORDERED: Lidocaine 1% PF 5 ML VIAL ONE (13:56)
[2024-04-06] MEDS ORDERED: CEFAZOLIN 2 GM VIAL ONE (13:56)
[2024-04-06] MEDS ORDERED: Rocuronium Bromide 10 MG/ML (10ML VIAL) ONE (13:56)
[2024-04-06] MEDS ORDERED: SUGAMMADEX SODIUM 200 MG/2 ML VIAL ONE (13:56)
[2024-04-06] MEDS ORDERED: Dexamethasone 20 MG/5 ML VIAL ONE (13:56)
[2024-04-06] MEDS ORDERED: PROPOFOL 20 ML ONE (13:56)
[2024-04-06] MEDS ORDERED: Sodium Chloride 0.9% 100 ML ONE (13:56)
[2024-04-06] MEDS ORDERED: Glycopyrrolate 0.2 MG/ML 5 ML SYRINGE ONE (13:57)
[2024-04-06] MEDS ORDERED: PHENYLEPHRINE-NS 100 MCG/ML 10 ML SYRINGE ONE (13:57)
[2024-04-06] MEDS ORDERED: Ondansetron HCl/PF 4 MG/2 ML Vial IVP PRN (15:11)
[2024-04-06] MEDS ORDERED: Promethazine HCl 25 MG/ML VIAL IM PRN (15:11)
[2024-04-06 16:47] LABS: Anion Gap 16 mmol/L (10-20); BUN (Urea Nitrogen) 28 mg/dL (8.4-25.7); Calc. Creatinine Clearance 54 mL/min (70-130); Calcium 8.9 mg/dL (7.8-10.44); Carbon Dioxide 19 mmol/L (23-31); Chloride 101 mmol/L (98-107); Estimated GFR 50; Glucose 130 mg/dL (83-110); Sodium 133 mmol/L (136-145)
[2024-04-06] MEDS: CEFAZOLIN 2 GM in Sodium Chloride 0.9% 100 ML IVPB SCH (23:12)
[2024-04-07 20:00] LABS: ALT (SGPT) 97 U/L (8-55); AST (SGOT) 97 U/L (5-34); Albumin 2.3 g/dL (3.4-4.8); Alkaline Phosphatase 126 U/L (40-110); Anion Gap 12 mmol/L (10-20); BUN (Urea Nitrogen) 25 mg/dL (8.4-25.7); Bilirubin, Total 0.9 mg/dL (0.2-1.2); Calc. Creatinine Clearance 68 mL/min (70-130); Calcium 7.8 mg/dL (7.8-10.44); Carbon Dioxide 26 mmol/L (23-31); Chloride 103 mmol/L (98-107); Estimated GFR 67; Glucose 135 mg/dL (83-110); Potassium 3.5 mmol/L (3.5-5.1); Protein, Total 5.3 g/dL (5.8-8.1); Sodium 137 mmol/L (136-145)
[2024-04-07] MEDS: Potassium Chloride 20 MEQ TAB PO SCH (23:06)
[2024-04-08] MEDS: Apixaban 5 MG TAB PO SCH (09:30)
[2024-04-08 15:42] LABS: Anion Gap 13 mmol/L (10-20); BUN (Urea Nitrogen) 17 mg/dL (8.4-25.7); Calc. Creatinine Clearance 82 mL/min (70-130); Carbon Dioxide 24 mmol/L (23-31); Chloride 102 mmol/L (98-107); Estimated GFR 82; Glucose 109 mg/dL (83-110); Potassium 4.7 mmol/L (3.5-5.1); Sodium 134 mmol/L (136-145)
[2024-04-09 07:00] LABS: Anion Gap 15 mmol/L (10-20); BUN (Urea Nitrogen) 16 mg/dL (8.4-25.7); Calc. Creatinine Clearance 81 mL/min (70-130); Calcium 7.9 mg/dL (7.8-10.44); Carbon Dioxide 23 mmol/L (23-31); Chloride 102 mmol/L (98-107); Estimated GFR 81; Glucose 83 mg/dL (83-110); Potassium 4.7 mmol/L (3.5-5.1); Sodium 135 mmol/L (136-145)
[2024-04-09] MEDS: Apixaban 5 MG TAB PO SCH (20:53)
[2024-04-09] MEDS: Mirtazapine 15 MG TAB PO SCH (20:53)
[2024-04-10 06:47] LABS: #Basophils Less than 0.03 10x3/uL (0.0-0.2); %Basophils 0.1 % (0.0-1.0); %Lymphocytes 16.7 % (21.0-51.0); %Monocytes 11.1 % (0.0-10.0); Hematocrit 29.1 % (42.0-52.0); Hemoglobin 9.6 g/dL (14.0-18.0); Mean Corpuscular Hemoglobin 34.2 pg (27.0-31.0); Mean Corpuscular Volume 103.6 fL (78.0-98.0); Mean Platelet Volume 11.6 fL (7.4-10.4); Platelet Count 92 10x3/uL (130-400); RBC Distribution Width 15.9 % (11.5-14.5); Red Blood Cell (RBC) Count 2.81 mill/uL (4.70-6.10)
[2024-04-10 07:05] LABS: Anion Gap 11 mmol/L (10-20); BUN (Urea Nitrogen) 15 mg/dL (8.4-25.7); Calc. Creatinine Clearance 85 mL/min (70-130); Calcium 7.7 mg/dL (7.8-10.44); Carbon Dioxide 23 mmol/L (23-31); Chloride 102 mmol/L (98-107); Estimated GFR 87; Glucose 122 mg/dL (83-110); Potassium 4.2 mmol/L (3.5-5.1); Sodium 132 mmol/L (136-145)
[2024-04-11 11:54] VITALS: BP 112/81; TEMP 97.9
== END 2024-04-11 18:12 | disposition swing bed (61) | DRG 504 ==
LOC: ERS 06:33 → SURG B 10:23
PROVIDERS: ADMIT Surgery; ATTEND Surgery
PROC: 0QSN04Z Reposition Right Metatarsal with Internal Fixation Device, Open Approach (ICD-10-PCS; principal; 2024-04-06)
DX: S92.311A Displaced fracture of first metatarsal bone, right foot, initial encounter for closed fracture (principal); B18.1 Chronic viral hepatitis B without delta-agent; E87.1 Hypo-osmolality and hyponatremia; S22.049A Unspecified fracture of fourth thoracic vertebra, initial encounter for closed fracture; S22.059A Unspecified fracture of T5-T6 vertebra, initial encounter for closed fracture; S22.31XA Fracture of one rib, right side, initial encounter for closed fracture; E87.20 Acidosis, unspecified; N17.9 Acute kidney failure, unspecified; I50.32 Chronic diastolic (congestive) heart failure; J96.11 Chronic respiratory failure with hypoxia; I13.0 Hypertensive heart and chronic kidney disease with heart failure and stage 1 through stage 4 chronic kidney disease, or unspecified chronic kidney disease; M48.56XA Collapsed vertebra, not elsewhere classified, lumbar region, initial encounter for fracture; N40.0 Benign prostatic hyperplasia without lower urinary tract symptoms; E87.6 Hypokalemia; K21.9 Gastro-esophageal reflux disease without esophagitis; F39 Unspecified mood [affective] disorder; W18.30XA Fall on same level, unspecified, initial encounter; N18.2 Chronic kidney disease, stage 2 (mild); G89.29 Other chronic pain; J43.9 Emphysema, unspecified; Z87.891 Personal history of nicotine dependence; Z99.81 Dependence on supplemental oxygen; Z79.01 Long term (current) use of anticoagulants; Z79.52 Long term (current) use of systemic steroids; Z79.899 Other long term (current) drug therapy; Y93.9 Activity, unspecified; Y92.89 Other specified places as the place of occurrence of the external cause
CPT/HCPCS: 36415; 36416; 70450; 71045; 71260; 72125; 74177; 80048; 80053; 80306; 81001; 83605; 83735; 83880; 84100; 84484; 85025; 85610; 85730; 86850; 86900; 86901; 93005; 94640; C1713; G0390; J1100; J2405; J2704; J3010; J3475; J3480; J3490; J7050; J7120; J7620; Q9967; S0028

== ENCOUNTER 2024-04-15 15:09 | Emergency (ER) | payer MEDICARE ==
[2024-04-15] MEDS ORDERED: Morphine 4 MG/ML VIAL ONE ×2 (15:26→16:39)
[2024-04-15 16:35] LABS: #Basophils Less than 0.03 10x3/uL (0.0-0.2); #Eosinphils Less than 0.03 10x3/uL (0.0-0.7); %Basophils 0.1 % (0.0-1.0); %Eosinophils 0.2 % (0.0-10.0); %Monocytes 6.4 % (0.0-10.0); %Neutrophils 81.3 % (42.0-75.0); Hematocrit 30.1 % (42.0-52.0); Hemoglobin 10.4 g/dL (14.0-18.0); Mean Corpuscular HGB CONC 34.6 g/dL (32.0-36.0); Mean Corpuscular Hemoglobin 34.2 pg (27.0-31.0); Mean Platelet Volume 11.2 fL (7.4-10.4); Platelet Count 83 10x3/uL (130-400); RBC Distribution Width 15.7 % (11.5-14.5); Red Blood Cell (RBC) Count 3.04 mill/uL (4.70-6.10)
[2024-04-15 16:43] LABS: ALT (SGPT) 117 U/L (8-55); AST (SGOT) 124 U/L (5-34); Albumin 2.3 g/dL (3.4-4.8); Alkaline Phosphatase 150 U/L (40-110); Anion Gap 12 mmol/L (10-20); BUN (Urea Nitrogen) 32 mg/dL (8.4-25.7); Bilirubin, Total 1.3 mg/dL (0.2-1.2); Calc. Creatinine Clearance 0 mL/min (70-130); Calcium 7.3 mg/dL (7.8-10.44); Carbon Dioxide 23 mmol/L (23-31); Chloride 105 mmol/L (98-107); Estimated GFR 37; Globulin 3.5 g/dL (2.4-3.5); Glucose 124 mg/dL (83-110); Protein, Total 5.8 g/dL (5.8-8.1); Sodium 137 mmol/L (136-145)
[2024-04-15] MEDS ORDERED: fentaNYL 50 mcg/mL 1 mL Vial ONE (17:29)
[2024-04-15] MEDS ORDERED: Lorazepam 2 MG/ML VIAL ONE (18:25)
[2024-04-15 23:59] LABS: INR-International Normal Ratio 1.4; Prothrombin Time 17.4 sec (12.0-14.7)
[2024-04-16] LABS: PTT 29.8 sec (22.9-36.1)
[2024-04-16] MEDS ORDERED: HYDROmorphone 0.5 MG/0.5 ML SYRINGE ONE (00:28)
== END 2024-04-16 00:45 | disposition short-term general hospital (02) ==
LOC: ERS 15:09
DX: S32.401A Unspecified fracture of right acetabulum, initial encounter for closed fracture (principal); N17.9 Acute kidney failure, unspecified; J44.9 Chronic obstructive pulmonary disease, unspecified; J43.9 Emphysema, unspecified; W01.0XXA Fall on same level from slipping, tripping and stumbling without subsequent striking against object, initial encounter; Y93.01 Activity, walking, marching and hiking; Y92.89 Other specified places as the place of occurrence of the external cause
CPT/HCPCS: 70450; 71260; 72125; 72170; 73502; 74177; 80053; 85025; 85610; 85730; 86850; 86900; 86901; J1170; J2060; J2270; J3010; Q9967; 36415; 96374; 96375; 96376